=== PATIENT | male | born 1950 | race Two or more races ===

== ENCOUNTER 2021-03-07 11:51 | Inpatient (IN) | payer MEDICARE ==
[~2021-03-07] VITALS: Ht 185.4 cm; Wt 112.0 kg
[2021-03-07] MEDS ORDERED: MORPHINE SULFATE 4 MG/ML SYR/VIAL IV ONE (12:00)
[2021-03-07] MEDS ORDERED: PANTOPRAZOLE 40 MG/10 ML VIAL INJ IV ONE (12:00)
[2021-03-07] MEDS ORDERED: SODIUM CHLORIDE 0.9% 500 ML IVB ONE (12:00)
[2021-03-07] MEDS ORDERED: ONDANSETRON HCL 4 MG/2 ML VIAL IV ONE (12:00)
[2021-03-07 12:30] LABS: Basophils # (auto) 0 10 ^3/uL (0-0.2); Basophils % (auto) 0.3 % (0.0-2.0); Eosinophils # (auto) 0.1 10 ^3/uL (0-0.8); Eosinophils % (auto) 1.4 % (0.0-7.0); Hematocrit 42.4 % (41.0-53.0); Hemoglobin 14.3 g/dL (13.5-17.5); Lymphocytes # (auto) 2.7 10 ^3/uL (0.4-5.4); Lymphocytes % (auto) 29.1 % (10.0-50.0); Mean Corpuscular Hemoglobin 28.7 pg (28.0-32.0); Mean Corpuscular Hgb Conc. 33.8 g/dL (32.0-36.0); Monocytes # (auto) 0.7 10 ^3/uL (0-1.3); Monocytes % (auto) 8.1 % (0.0-12.0); Neutrophils # (auto) 5.6 10 ^3/uL (1.6-8.6); Neutrophils % (auto) 61.1 % (37.0-80.0); Red Blood Cells 4.99 10^6/uL (4.5-5.90); Red Cell Distribution Width 14.2 % (11.8-14.3); White Blood Cell 9.2 10^3/uL (4.4-10.8)
[2021-03-07 12:38] LABS: Chloride 109 mmol/L (98-107); Potassium 3.1 mmol/L (3.5-5.1); Sodium 146 mmol/L (136-145)
[2021-03-07 12:47] LABS: Alanine Aminotransferase 22 U/L (16-61); Albumin 3.2 g/dL (3.4-5.0); Alkaline Phosphatase 74 U/L (45-117); Anion Gap 8 (5-15); Aspartate Aminotransferase 13 U/L (15-37); BUN/Creatinine Ratio 21.3; Bilirubin, Total 0.7 mg/dL (0.2-1.0); Blood Urea Nitrogen 19 mg/dL (7-18); Calcium 8.5 mg/dL (8.5-10.1); Carbon Dioxide 29 mmol/L (21-32); GFR African American 108 mL/min; GFR Non-African American 89 mL/min; Glucose 125 mg/dL (74-106); Lipase 127 U/L (73-393); Magnesium 2.5 mg/dL (1.6-2.6); Total Protein 6.6 g/dL (6.4-8.2)
[2021-03-07] MEDS ORDERED: traMADol HCL 50 MG TAB PO ONE (14:00)
[2021-03-07] MEDS ORDERED: PIPERACILLIN-TAZOB 3.375GM 100 ML IV ONE (14:15)
[2021-03-07] MEDS ORDERED: metroNIDAZOLE 500MG/100ML 100 ML IV ONE (14:30)
[2021-03-07] MEDS ORDERED: MORPHINE SULF INJ 2 MG/ML SYRINGE 1ML IV PRN (15:00)
[2021-03-07] MEDS ORDERED: ENOXAPARIN SOD 40 MG/0.4 ML SYRINGE SC ONE (15:00)
[2021-03-07] MEDS ORDERED: NITROGLYCERIN 0.4 MG SL TAB SL PRN (15:00)
[2021-03-07 17:08] VITALS: BP 119/71
[2021-03-07] MEDS: D5W/ SOD CHL 0.9%/KCL 20MEQ 1,000 ML IV SCH (17:21)
[2021-03-07 18:04] VITALS: BP 119/71
[2021-03-07] MEDS: metroNIDAZOLE 500MG/100ML 100 ML IV SCH (21:05)
[2021-03-07] MEDS: traZODone HCL 50 MG TAB PO SCH (21:05)
[2021-03-07] MEDS: levETIRAcetam 500 MG TAB PO SCH (21:06)
[2021-03-07] MEDS: METOPROLOL TARTRATE 50 MG TAB PO SCH (21:15)
[2021-03-07] MEDS ORDERED: KETOROLAC TROMETH 30 MG/ML 1ML VIAL IV ONE (21:15)
[2021-03-07 21:21] VITALS: BP 116/68
[2021-03-08 05:18] VITALS: BP 114/63
[2021-03-08] MEDS: D5W/ SOD CHL 0.9%/KCL 20MEQ 1,000 ML IV SCH ×3 (05:30→21:00)
[2021-03-08] MEDS: metroNIDAZOLE 500MG/100ML 100 ML IV SCH ×2 (05:31→17:30)
[2021-03-08] MEDS: MORPHINE SULF INJ 2 MG/ML SYRINGE 1ML IV PRN ×2 (05:41→13:13)
[2021-03-08 06:11] LABS: Basophils # (auto) 0 10 ^3/uL (0-0.2); Basophils % (auto) 0.3 % (0.0-2.0); Eosinophils # (auto) 0.1 10 ^3/uL (0-0.8); Eosinophils % (auto) 1.7 % (0.0-7.0); Hemoglobin 12.8 g/dL (13.5-17.5); Lymphocytes # (auto) 2.5 10 ^3/uL (0.4-5.4); Lymphocytes % (auto) 33.3 % (10.0-50.0); Mean Corpuscular Hemoglobin 28.9 pg (28.0-32.0); Mean Corpuscular Hgb Conc. 33.6 g/dL (32.0-36.0); Monocytes # (auto) 0.7 10 ^3/uL (0-1.3); Monocytes % (auto) 9.1 % (0.0-12.0); Neutrophils # (auto) 4.1 10 ^3/uL (1.6-8.6); Neutrophils % (auto) 55.6 % (37.0-80.0); Red Blood Cells 4.42 10^6/uL (4.5-5.90); White Blood Cell 7.5 10^3/uL (4.4-10.8)
[2021-03-08 06:34] LABS: Urine Bacteria NONE SEEN /hpf (None Seen); Urine Blood Negative /uL (Negative); Urine Mucus FEW (None Seen); Urine Specific Gravity 1.025 (1.001-1.035); Urine WBC 4 /hpf (0 - 3)
[2021-03-08 06:54] LABS: Albumin 2.8 g/dL (3.4-5.0); BUN/Creatinine Ratio 22.8; Bilirubin, Total 0.4 mg/dL (0.2-1.0); Calcium 7.7 mg/dL (8.5-10.1); Total Protein 5.7 g/dL (6.4-8.2)
[2021-03-08 07:00] LABS: Potassium 2.9 mmol/L (3.5-5.1)
[2021-03-08] MEDS ORDERED: POTASSIUM CHL 20 Meq TABLET PO ONE (07:15)
[2021-03-08 09:00] VITALS: BP 113/61
[2021-03-08] MEDS: levETIRAcetam 500 MG TAB PO SCH ×2 (09:16→20:57)
[2021-03-08] MEDS: METOPROLOL TARTRATE 50 MG TAB PO SCH ×2 (09:17→20:57)
[2021-03-08] MEDS: cefTRIAXone 1GM/50ML D5W 50 ML IV SCH (09:18)
[2021-03-08] MEDS ORDERED: PANTOPRAZOLE 40 MG TAB PO SCH (10:00)
[2021-03-08] MEDS ORDERED: POTASSIUM CHLORIDE 40 MEQ, LIDOCAINE 1% (LOCAL ANESTH.) 4 ML in SODIUM CHL 0.9% 250 ML IV ONE (12:00)
[2021-03-08 13:00] VITALS: BP 96/51
[2021-03-08] MEDS: HYDROcodone-ACET 5/325MG TAB PO PRN ×2 (16:11→21:09)
[2021-03-08] MEDS ORDERED: CALC500C3 PO (16:16)
[2021-03-08] MEDS ORDERED: DIVA500T13 PO (16:16)
[2021-03-08] MEDS ORDERED: ALUMSUS OR (16:16)
[2021-03-08] MEDS ORDERED: TRAZ100T3 PO (16:16)
[2021-03-08] MEDS ORDERED: DOCU-94 PO (16:16)
[2021-03-08] MEDS ORDERED: POTA-220 PO (16:16)
[2021-03-08] MEDS ORDERED: LEVE750T3 PO (16:16)
[2021-03-08] MEDS ORDERED: MELA3TAB27 PO (16:16)
[2021-03-08] MEDS ORDERED: MULT-1018 PO (16:16)
[2021-03-08] MEDS ORDERED: DOCU100C10 PO (16:16)
[2021-03-08] MEDS ORDERED: ACET500C8 PO (16:16)
[2021-03-08] MEDS ORDERED: ATOR10TA52 PO (16:16)
[2021-03-08] MEDS ORDERED: ASCO-22 PO (16:16)
[2021-03-08] MEDS ORDERED: FURO40TA4 PO (16:16)
[2021-03-08] MEDS ORDERED: BISA10SU5 RE (16:16)
[2021-03-08] MEDS ORDERED: ZINC220C8 PO (16:16)
[2021-03-08] MEDS ORDERED: AMINLIQ64 OR (16:16)
[2021-03-08] MEDS ORDERED: FAMO-12 PO (16:16)
[2021-03-08] MEDS ORDERED: DICL-163 PO (16:16)
[2021-03-08] MEDS ORDERED: LEVO25TA6 PO (16:16)
[2021-03-08] MEDS ORDERED: CHOL100055 PO (16:16)
[2021-03-08] MEDS ORDERED: LOPE2TAB78 PO (16:16)
[2021-03-08] MEDS ORDERED: ASPI-543 PO (16:16)
[2021-03-08] MEDS ORDERED: METO25TA93 PO (16:16)
[2021-03-08] MEDS ORDERED: DIPH25CA66 PO (16:16)
[2021-03-08 17:23] VITALS: BP 95/60
[2021-03-08] MEDS: traZODone HCL 50 MG TAB PO SCH (20:57)
[2021-03-08 22:23] VITALS: BP 101/61
[2021-03-09] MEDS: metroNIDAZOLE 500MG/100ML 100 ML IV SCH ×3 (00:35→16:32)
[2021-03-09] MEDS: HYDROcodone-ACET 5/325MG TAB PO PRN ×4 (03:14→22:03)
[2021-03-09 05:03] VITALS: BP 96/59
[2021-03-09] MEDS: MORPHINE SULF INJ 2 MG/ML SYRINGE 1ML IV PRN ×3 (05:21→18:34)
[2021-03-09] MEDS: D5W/ SOD CHL 0.9%/KCL 20MEQ 1,000 ML IV SCH ×2 (06:26→10:31)
[2021-03-09 08:30] LABS: BUN/Creatinine Ratio 19.4; Calcium 8.1 mg/dL (8.5-10.1); Potassium 3.4 mmol/L (3.5-5.1)
[2021-03-09] MEDS: levETIRAcetam 500 MG TAB PO SCH ×2 (08:39→21:35)
[2021-03-09] MEDS: cefTRIAXone 1GM/50ML D5W 50 ML IV SCH (08:39)
[2021-03-09] MEDS: METOPROLOL TARTRATE 50 MG TAB PO SCH ×2 (08:48→21:39)
[2021-03-09 09:00] VITALS: BP 110/65
[2021-03-09] MEDS ORDERED: POTASSIUM CHL 20 Meq TABLET PO ONE (09:00)
[2021-03-09 13:00] VITALS: BP 111/74
[2021-03-09 17:00] VITALS: BP 91/52
[2021-03-09 18:30] VITALS: BP 104/62
[2021-03-09] MEDS: traZODone HCL 50 MG TAB PO SCH (21:35)
[2021-03-09 22:00] VITALS: BP 89/44
[2021-03-10] MEDS: D5W/ SOD CHL 0.9%/KCL 20MEQ 1,000 ML IV SCH (00:45)
[2021-03-10] MEDS: metroNIDAZOLE 500MG/100ML 100 ML IV SCH (00:45)
[2021-03-10] MEDS: MORPHINE SULF INJ 2 MG/ML SYRINGE 1ML IV PRN ×4 (00:46→21:56)
[2021-03-10] MEDS: ONDANSETRON HCL 4 MG/2 ML VIAL IV PRN (03:03)
[2021-03-10 05:00] VITALS: BP 101/58
[2021-03-10 09:04] VITALS: BP 111/76
[2021-03-10] MEDS: levETIRAcetam 500 MG TAB PO SCH ×2 (09:53→21:50)
[2021-03-10] MEDS: METOPROLOL TARTRATE 50 MG TAB PO SCH ×2 (09:53→21:50)
[2021-03-10] MEDS ORDERED: SODIUM CHLORIDE 0.9% 500 ML IV ONE (10:00)
[2021-03-10 10:43] LABS: Basophils # (auto) 0 10 ^3/uL (0-0.2); Basophils % (auto) 0.4 % (0.0-2.0); Eosinophils # (auto) 0.2 10 ^3/uL (0-0.8); Eosinophils % (auto) 2.4 % (0.0-7.0); Hematocrit 38.4 % (41.0-53.0); Lymphocytes # (auto) 1.6 10 ^3/uL (0.4-5.4); Lymphocytes % (auto) 22.5 % (10.0-50.0); Mean Corpuscular Hemoglobin 28.8 pg (28.0-32.0); Mean Corpuscular Hgb Conc. 33.9 g/dL (32.0-36.0); Mean Corpuscular Volume 85.1 fL (80.0-100.0); Monocytes # (auto) 0.5 10 ^3/uL (0-1.3); Neutrophils # (auto) 4.9 10 ^3/uL (1.6-8.6); Neutrophils % (auto) 67.7 % (37.0-80.0); Red Blood Cells 4.51 10^6/uL (4.5-5.90); White Blood Cell 7.3 10^3/uL (4.4-10.8)
[2021-03-10] MEDS: levoFLOXacin 500 MG TAB PO SCH (11:14)
[2021-03-10 11:38] LABS: Calcium 7.8 mg/dL (8.5-10.1); Potassium 3.8 mmol/L (3.5-5.1)
[2021-03-10 11:41] LABS: BUN/Creatinine Ratio 11.9
[2021-03-10] MEDS: HYDROcodone-ACET 5/325MG TAB PO PRN (12:36)
[2021-03-10 12:38] VITALS: BP 96/60
[2021-03-10 12:40] VITALS: BP 125/79
[2021-03-10] MEDS ORDERED: FLEET ENEMA(ADULT) 135 ML PR ONE ×2 (13:00→14:00)
[2021-03-10 14:01] LABS: INR 1.08 (0.9-1.15); Partial Thromboplastin Time 29.3 sec (23.0-31.2)
[2021-03-10] MEDS: metroNIDAZOLE 500 MG TAB PO SCH ×2 (14:47→21:50)
[2021-03-10] MEDS ORDERED: fentaNYL CITRATE 100 MCG/2 ML VL ONE (16:01)
[2021-03-10] MEDS ORDERED: MIDAZOLAM HCL 5 MG/ML-1ML VIAL ONE (16:01)
[2021-03-10] MEDS ORDERED: diphenhdrAMINE HCL 50 MG/1 ML VL ONE (16:01)
[2021-03-10 17:33] VITALS: BP 118/72
[2021-03-10] MEDS: traZODone HCL 50 MG TAB PO SCH (21:50)
[2021-03-10] MEDS: DOCUSATE SOD 100 MG CAP PO SCH (21:50)
[2021-03-10 22:00] VITALS: BP 120/78
[2021-03-11 05:00] VITALS: BP 95/59
[2021-03-11] MEDS: metroNIDAZOLE 500 MG TAB PO SCH ×3 (06:18→21:50)
[2021-03-11] MEDS: MORPHINE SULF INJ 2 MG/ML SYRINGE 1ML IV PRN ×3 (08:10→20:56)
[2021-03-11 09:00] VITALS: BP 110/60
[2021-03-11] MEDS: levETIRAcetam 500 MG TAB PO SCH ×2 (09:33→21:48)
[2021-03-11] MEDS: levoFLOXacin 500 MG TAB PO SCH (09:33)
[2021-03-11] MEDS: DOCUSATE SOD 100 MG CAP PO SCH ×2 (09:33→21:47)
[2021-03-11] MEDS: METOPROLOL TARTRATE 50 MG TAB PO SCH ×2 (09:34→21:53)
[2021-03-11] MEDS: HYDROcodone-ACET 5/325MG TAB PO PRN ×3 (11:01→20:12)
[2021-03-11 12:50] VITALS: BP 105/74
[2021-03-11 17:00] VITALS: BP 100/65
[2021-03-11] MEDS: traZODone HCL 50 MG TAB PO SCH (21:49)
[2021-03-11 21:54] VITALS: BP 104/57
[2021-03-12] MEDS: HYDROcodone-ACET 5/325MG TAB PO PRN ×4 (00:15→18:09)
[2021-03-12 04:26] VITALS: BP 91/57
[2021-03-12] MEDS: metroNIDAZOLE 500 MG TAB PO SCH ×3 (05:24→21:13)
[2021-03-12 06:08] LABS: Basophils # (auto) 0 10 ^3/uL (0-0.2); Basophils % (auto) 0.5 % (0.0-2.0); Eosinophils # (auto) 0.3 10 ^3/uL (0-0.8); Eosinophils % (auto) 3.3 % (0.0-7.0); Hematocrit 37.8 % (41.0-53.0); Hemoglobin 12.8 g/dL (13.5-17.5); Lymphocytes # (auto) 2.7 10 ^3/uL (0.4-5.4); Lymphocytes % (auto) 34.8 % (10.0-50.0); Mean Corpuscular Hgb Conc. 33.9 g/dL (32.0-36.0); Mean Corpuscular Volume 85.7 fL (80.0-100.0); Monocytes # (auto) 0.8 10 ^3/uL (0-1.3); Monocytes % (auto) 10.4 % (0.0-12.0); Red Blood Cells 4.41 10^6/uL (4.5-5.90); Red Cell Distribution Width 14.3 % (11.8-14.3); White Blood Cell 7.8 10^3/uL (4.4-10.8)
[2021-03-12 06:24] LABS: Potassium 3.7 mmol/L (3.5-5.1)
[2021-03-12 06:29] LABS: BUN/Creatinine Ratio 16.2; Calcium 7.9 mg/dL (8.5-10.1)
[2021-03-12] MEDS: MORPHINE SULF INJ 2 MG/ML SYRINGE 1ML IV PRN ×2 (08:00→20:29)
[2021-03-12 08:30] VITALS: BP 98/63
[2021-03-12] MEDS: levETIRAcetam 500 MG TAB PO SCH ×2 (10:00→21:14)
[2021-03-12] MEDS: METOPROLOL TARTRATE 50 MG TAB PO SCH ×2 (10:00→21:15)
[2021-03-12] MEDS: DOCUSATE SOD 100 MG CAP PO SCH ×2 (10:00→21:12)
[2021-03-12] MEDS: levoFLOXacin 500 MG TAB PO SCH (10:00)
[2021-03-12] MEDS: MESALAMINE 400mg Delayed Release Cap PO SCH ×2 (11:00→21:12)
[2021-03-12 12:42] VITALS: BP 91/52
[2021-03-12 16:49] VITALS: BP 110/67
[2021-03-12 20:00] VITALS: BP 112/74
[2021-03-12] MEDS: traZODone HCL 50 MG TAB PO SCH (21:14)
[2021-03-13] MEDS: HYDROcodone-ACET 5/325MG TAB PO PRN ×5 (00:19→19:52)
[2021-03-13 05:00] VITALS: BP 90/50
[2021-03-13] MEDS: metroNIDAZOLE 500 MG TAB PO SCH ×2 (05:13→14:42)
[2021-03-13 08:55] VITALS: BP_SYST 54; BP_SYST 97; BP_DIAS 50; BP_DIAS 67
[2021-03-13] MEDS: DOCUSATE SOD 100 MG CAP PO SCH (10:02)
[2021-03-13] MEDS: MESALAMINE 400mg Delayed Release Cap PO SCH (10:02)
[2021-03-13] MEDS: levETIRAcetam 500 MG TAB PO SCH (10:02)
[2021-03-13] MEDS: METOPROLOL TARTRATE 50 MG TAB PO SCH (10:03)
[2021-03-13] MEDS: levoFLOXacin 500 MG TAB PO SCH (10:08)
[2021-03-13] MEDS ORDERED: ONDA-144 PO (10:39)
[2021-03-13] MEDS ORDERED: MESA400C PO (10:39)
[2021-03-13] MEDS ORDERED: LEVO-28 PO (10:39)
[2021-03-13] MEDS ORDERED: MET500T PO (10:39)
[2021-03-13 12:38] VITALS: BP 87/50
[2021-03-13] MEDS: ONDANSETRON HCL 4 MG/2 ML VIAL IV PRN (13:20)
[2021-03-13 16:57] VITALS: BP 104/66
== END 2021-03-13 20:36 | disposition home health service (06) | DRG 386 ==
LOC: ER 11:51 → EDBD 11:51 → TELE 14:56 → TELE-CENTR 16:42
PROVIDERS: ADMIT Nurse Practitioner Acute Care; ATTEND Internal Medicine
PROC: 0DBN8ZZ Excision of Sigmoid Colon, Via Natural or Artificial Opening Endoscopic (ICD-10-PCS; 2021-03-10)
PROC: 0DBN8ZX Excision of Sigmoid Colon, Via Natural or Artificial Opening Endoscopic, Diagnostic (ICD-10-PCS; principal; 2021-03-10 16:28)
DX: K51.311 Ulcerative (chronic) rectosigmoiditis with rectal bleeding (principal); E44.0 Moderate protein-calorie malnutrition; K52.9 Noninfective gastroenteritis and colitis, unspecified; R73.9 Hyperglycemia, unspecified; Q04.9 Congenital malformation of brain, unspecified; G40.909 Epilepsy, unspecified, not intractable, without status epilepticus; I48.91 Unspecified atrial fibrillation; E66.9 Obesity, unspecified; E87.6 Hypokalemia; Z68.30 Body mass index [BMI] 30.0-30.9, adult; Z88.8 Allergy status to other drugs, medicaments and biological substances; Z20.822 Contact with and (suspected) exposure to COVID-19; K80.20 Calculus of gallbladder without cholecystitis without obstruction; K64.8 Other hemorrhoids; E03.9 Hypothyroidism, unspecified; F32.9 Major depressive disorder, single episode, unspecified; E78.5 Hyperlipidemia, unspecified; I10 Essential (primary) hypertension; J44.9 Chronic obstructive pulmonary disease, unspecified; K63.5 Polyp of colon; Z80.9 Family history of malignant neoplasm, unspecified
CPT/HCPCS: 36415; 71045; 74176; 80048; 80053; 81001; 82270; 82378; 83690; 83735; 84484; 85025; 85048; 85610; 85730; 86850; 86900; 86901; 87045; 87081; 87426; 87427; 87493; 93005; 96361; 96365; 96367; 96372; 96375; C9113; G0378; J0696; J1885; J2001; J2250; J2405; J2543; J3490

== ENCOUNTER → 2021-09-22 | Day surgery (SDC) | payer MEDICARE ==
[2021-09-20 11:21] LABS: Basophils # (auto) 0 10 ^3/uL (0-0.2); Basophils % (auto) 0.5 % (0.0-2.0); Eosinophils # (auto) 0.1 10 ^3/uL (0-0.8); Eosinophils % (auto) 1.3 % (0.0-7.0); Hemoglobin 14.7 g/dL (13.5-17.5); Lymphocytes # (auto) 2.5 10 ^3/uL (0.4-5.4); Mean Corpuscular Hemoglobin 29.5 pg (28.0-32.0); Mean Corpuscular Hgb Conc. 34.2 g/dL (32.0-36.0); Mean Corpuscular Volume 86.4 fL (80.0-100.0); Monocytes # (auto) 0.6 10 ^3/uL (0-1.3); Monocytes % (auto) 7.5 % (0.0-12.0); Neutrophils # (auto) 4.2 10 ^3/uL (1.6-8.6); Neutrophils % (auto) 56.7 % (37.0-80.0); Nucleated Red Blood Cells % 0.1 %; Red Blood Cells 4.98 10^6/uL (4.5-5.90); Red Cell Distribution Width 13.1 % (11.8-14.3); White Blood Cell 7.4 10^3/uL (4.4-10.8)
[2021-09-20 11:39] LABS: INR 1.07 (0.9-1.15); Partial Thromboplastin Time 29.1 sec (23.6-33.0)
[2021-09-20 12:42] LABS: Albumin 3.8 g/dL (3.4-5.0); BUN/Creatinine Ratio 25.3; Bilirubin, Total 0.9 mg/dL (0.2-1.0); Calcium 8.9 mg/dL (8.5-10.1); Total Protein 7.1 g/dL (6.4-8.2)
[~2021-09-22] VITALS: Ht 185.4 cm; Wt 98.4 kg
[~2021-09-22] MED LIST: ACET500C8 PO; ALUMSUS OR; ASCO-22 PO; ASPI-543 PO; BENZ1TAB2 PO; BISA10SU60 PR; CYAN1TAB14 PO; DICL50TA2 PO; DIPH25CA66 PO; DIVA500T13 PO; DOCU-94 PO; FAMO-12 PO; GINK40TA2 PO; IBUP800T26 PO; LEVE750T3 PO; LEVO-28 PO; LEVO25TA6 PO; LORA1TAB23 PO; MESA400C PO; MET500T PO; METO25TA93 PO; MIDAZOLAM HCL 5 MG/ML-1ML VIAL ONE; MULT-1018 PO; OMEG10003 PO; ONDA-144 PO; ROPI1TAB4 PO; SIMV-8 PO; TRAM50TA2 PO; TRAZ100T3 PO; VALE450C PO; ZINC220C8 PO; diphenhdrAMINE HCL 50 MG/1 ML VL ONE; fentaNYL CITRATE 100 MCG/2 ML VL ONE
[2021-09-22 13:45] VITALS: BP 113/68
== END | disposition home or self-care (01) ==
LOC: GI 12:13
PROVIDERS: ATTEND Internal Medicine Gastroenterology
DX: K56.41 Fecal impaction (principal); K63.89 Other specified diseases of intestine; I12.9 Hypertensive chronic kidney disease with stage 1 through stage 4 chronic kidney disease, or unspecified chronic kidney disease; N18.2 Chronic kidney disease, stage 2 (mild); E78.5 Hyperlipidemia, unspecified; F41.9 Anxiety disorder, unspecified; E03.9 Hypothyroidism, unspecified; Z98.890 Other specified postprocedural states; Z86.010 Personal history of colon polyps; Z79.899 Other long term (current) drug therapy; Z20.822 Contact with and (suspected) exposure to COVID-19
CPT/HCPCS: 36415; 45330; 80053; 85025; 85610; 85730; J1200; J2250; J3010; J7030; U0003

== ENCOUNTER 2022-05-05 10:40 | Inpatient (IN) | payer MEDICARE ==
[~2022-05-05] VITALS: Ht 185.4 cm; Wt 106.3 kg
[~2022-05-05 10:40] MED LIST changes: -MIDAZOLAM HCL 5 MG/ML-1ML VIAL ONE; -diphenhdrAMINE HCL 50 MG/1 ML VL ONE; -fentaNYL CITRATE 100 MCG/2 ML VL ONE
[2022-05-05] MEDS ORDERED: HYDROmorphone HCL 2 MG/ML VL/or syr IV ONE (12:15)
[2022-05-05] MEDS ORDERED: SODIUM CHLORIDE 0.9% 500 ML IVB ONE (12:15)
[2022-05-05] MEDS ORDERED: SODIUM CHLORIDE 0.9% 1,000 ML IV ONE (12:15)
[2022-05-05] MEDS: PROMETHAZINE HCL 25 MG/ML 1ML IV PRN (12:30)
[2022-05-05 13:14] LABS: Urine WBC None Seen /hpf (0 - 3)
[2022-05-05 13:16] LABS: INR 1.07 (0.9-1.15); Partial Thromboplastin Time 25.7 sec (24.6-33.4)
[2022-05-05 13:26] LABS: Potassium 4.7 mmol/L (3.5-5.1)
[2022-05-05 13:29] LABS: Urine Bacteria NONE SEEN /hpf (None Seen); Urine Blood Negative /uL (Negative); Urine Specific Gravity 1.009 (1.001-1.035)
[2022-05-05 13:35] LABS: Albumin 3.6 g/dL (3.4-5.0); BUN/Creatinine Ratio 24.1; Bilirubin, Total 1.4 mg/dL (0.2-1.0); Calcium 8.9 mg/dL (8.5-10.1); Magnesium 2.6 mg/dL (1.6-2.6); Total Protein 7.1 g/dL (6.4-8.2)
[2022-05-05 14:10] LABS: Basophils # (auto) 0 10 ^3/uL (0-0.2); Basophils % (auto) 0.1 % (0.0-2.0); Eosinophils # (auto) 0 10 ^3/uL (0-0.8); Eosinophils % (auto) 0.2 % (0.0-7.0); Hematocrit 50.1 % (41.0-53.0); Hemoglobin 16.5 g/dL (13.5-17.5); Lymphocytes # (auto) 3.4 10 ^3/uL (0.4-5.4); Lymphocytes % (auto) 22.3 % (10.0-50.0); Mean Corpuscular Hgb Conc. 32.9 g/dL (32.0-36.0); Mean Corpuscular Volume 88.2 fL (80.0-100.0); Monocytes # (auto) 1.9 10 ^3/uL (0-1.3); Monocytes % (auto) 12.5 % (0.0-12.0); Neutrophils # (auto) 9.8 10 ^3/uL (1.6-8.6); Neutrophils % (auto) 64.9 % (37.0-80.0); Nucleated Red Blood Cells % 0.2 %; Red Blood Cells 5.68 10^6/uL (4.5-5.90); White Blood Cell 15.2 10^3/uL (4.4-10.8)
[2022-05-05] MEDS ORDERED: ACETAMINOPHEN 325 MG TAB PO PRN (19:15)
[2022-05-05] MEDS ORDERED: SODIUM CHLORIDE 0.9% 1,000 ML IV SCH (19:15)
[2022-05-06 07:04] LABS: Basophils # (auto) 0 10 ^3/uL (0-0.2); Basophils % (auto) 0.3 % (0.0-2.0); Eosinophils # (auto) 0.1 10 ^3/uL (0-0.8); Eosinophils % (auto) 0.7 % (0.0-7.0); Hematocrit 43.6 % (41.0-53.0); Hemoglobin 14.7 g/dL (13.5-17.5); Lymphocytes # (auto) 2.3 10 ^3/uL (0.4-5.4); Lymphocytes % (auto) 23.5 % (10.0-50.0); Mean Corpuscular Hemoglobin 28.8 pg (28.0-32.0); Mean Corpuscular Hgb Conc. 33.8 g/dL (32.0-36.0); Mean Corpuscular Volume 85.3 fL (80.0-100.0); Monocytes # (auto) 1.2 10 ^3/uL (0-1.3); Monocytes % (auto) 12.7 % (0.0-12.0); Neutrophils # (auto) 6.1 10 ^3/uL (1.6-8.6); Neutrophils % (auto) 62.8 % (37.0-80.0); Red Blood Cells 5.11 10^6/uL (4.5-5.90); Red Cell Distribution Width 13.5 % (11.8-14.3); White Blood Cell 9.8 10^3/uL (4.4-10.8)
[2022-05-06] MEDS: PROMETHAZINE HCL 25 MG/ML 1ML IV PRN ×2 (07:16→17:15)
[2022-05-06] MEDS: MORPHINE SULFATE INJ 2 MG/ml SYRG IV PRN ×3 (07:18→22:02)
[2022-05-06 07:19] LABS: Albumin 3.2 g/dL (3.4-5.0); Calcium 7.9 mg/dL (8.5-10.1); Potassium 3.6 mmol/L (3.5-5.1)
[2022-05-06 07:23] LABS: BUN/Creatinine Ratio 32.3; Bilirubin, Total 1.2 mg/dL (0.2-1.0); Total Protein 6.1 g/dL (6.4-8.2)
[2022-05-06] MEDS: levETIRAcetam 500 MG TAB PO SCH (11:10)
[2022-05-06] MEDS: ENOXAPARIN SOD 40 MG/0.4 ML SYRINGE SC SCH (11:12)
[2022-05-06] MEDS: METOPROLOL SUCCINATE XL 50 MG TAB PO SCH (11:12)
[2022-05-06] MEDS ORDERED: HALOPERIDOL LACTATE 5 MG/ML INJ VIAL IM PRN (15:45)
[2022-05-06 22:00] VITALS: BP 140/87
[2022-05-06] MEDS: traZODone HCL 50 MG TAB PO SCH (22:02)
[2022-05-06 23:05] VITALS: BP 140/87
[2022-05-07] MEDS: MORPHINE SULFATE INJ 2 MG/ml SYRG IV PRN ×4 (02:15→19:29)
[2022-05-07 05:00] VITALS: BP 104/64
[2022-05-07 06:08] LABS: Calcium 7.8 mg/dL (8.5-10.1); Magnesium 2.5 mg/dL (1.6-2.6); Potassium 3.4 mmol/L (3.5-5.1)
[2022-05-07 06:12] LABS: BUN/Creatinine Ratio 33.3; Bilirubin, Total 1.1 mg/dL (0.2-1.0)
[2022-05-07 06:13] LABS: Basophils # (auto) 0 10 ^3/uL (0-0.2); Basophils % (auto) 0.4 % (0.0-2.0); Eosinophils # (auto) 0.2 10 ^3/uL (0-0.8); Eosinophils % (auto) 1.7 % (0.0-7.0); Hematocrit 42.4 % (41.0-53.0); Hemoglobin 14.1 g/dL (13.5-17.5); Lymphocytes % (auto) 30.4 % (10.0-50.0); Mean Corpuscular Hemoglobin 28.8 pg (28.0-32.0); Mean Corpuscular Hgb Conc. 33.2 g/dL (32.0-36.0); Mean Corpuscular Volume 86.6 fL (80.0-100.0); Monocytes # (auto) 1.1 10 ^3/uL (0-1.3); Neutrophils # (auto) 5.5 10 ^3/uL (1.6-8.6); Neutrophils % (auto) 56.5 % (37.0-80.0); Nucleated Red Blood Cells % 0.2 %; Red Cell Distribution Width 13.7 % (11.8-14.3); White Blood Cell 9.8 10^3/uL (4.4-10.8)
[2022-05-07 08:00] VITALS: BP 133/87
[2022-05-07] MEDS ORDERED: POTASSIUM CHLORIDE 20 MEQ, LIDOCAINE 1% (LOCAL ANESTH.) 2 ML in SODIUM CHL 0.9% 100 ML IV ONE (08:45)
[2022-05-07 09:00] VITALS: BP 133/87
[2022-05-07] MEDS: ENOXAPARIN SOD 40 MG/0.4 ML SYRINGE SC SCH (10:00)
[2022-05-07] MEDS: levETIRAcetam 500 MG TAB PO SCH (12:03)
[2022-05-07] MEDS: METOPROLOL SUCCINATE XL 50 MG TAB PO SCH (12:04)
[2022-05-07 13:00] VITALS: BP 127/77
[2022-05-07] MEDS ORDERED: FLEET ENEMA(ADULT) 135 ML PR ONE (13:30)
[2022-05-07 17:00] VITALS: BP 100/62
[2022-05-07] MEDS: traZODone HCL 50 MG TAB PO SCH (21:30)
[2022-05-07 22:00] VITALS: BP 111/62
[2022-05-07] MEDS: MUPIROCIN 2% OINT 15gm or 22gm FOR MRSA NARES EACHNOSTRI SCH ×2 (22:00→23:47)
[2022-05-08 05:00] VITALS: BP 107/60
[2022-05-08] MEDS: MORPHINE SULFATE INJ 2 MG/ml SYRG IV PRN (06:24)
[2022-05-08 07:08] LABS: Albumin 2.9 g/dL (3.4-5.0); Calcium 7.9 mg/dL (8.5-10.1); Magnesium 2.5 mg/dL (1.6-2.6); Potassium 3.5 mmol/L (3.5-5.1)
[2022-05-08 07:11] LABS: Bilirubin, Total 0.8 mg/dL (0.2-1.0)
[2022-05-08 07:20] LABS: BUN/Creatinine Ratio 27.6
[2022-05-08 08:00] VITALS: BP 111/51
[2022-05-08] MEDS: MUPIROCIN 2% OINT 15gm or 22gm FOR MRSA NARES EACHNOSTRI SCH ×2 (09:07→21:14)
[2022-05-08] MEDS: levETIRAcetam 500 MG TAB PO SCH (09:07)
[2022-05-08] MEDS: ENOXAPARIN SOD 40 MG/0.4 ML SYRINGE SC SCH (09:08)
[2022-05-08] MEDS: METOPROLOL SUCCINATE XL 50 MG TAB PO SCH (09:08)
[2022-05-08] MEDS: HYDROcodone-ACET 5/325MG TAB PO PRN ×3 (09:09→21:15)
[2022-05-08 12:00] VITALS: BP 111/61
[2022-05-08 16:00] VITALS: BP 130/85
[2022-05-08] MEDS: traZODone HCL 50 MG TAB PO SCH (21:15)
[2022-05-08 22:00] VITALS: BP 107/42
[2022-05-09 05:00] VITALS: BP 98/55
[2022-05-09 08:47] VITALS: BP 126/76
[2022-05-09 09:00] VITALS: BP 119/72
[2022-05-09] MEDS: MUPIROCIN 2% OINT 15gm or 22gm FOR MRSA NARES EACHNOSTRI SCH (09:06)
[2022-05-09] MEDS: levETIRAcetam 500 MG TAB PO SCH (09:07)
[2022-05-09] MEDS: ENOXAPARIN SOD 40 MG/0.4 ML SYRINGE SC SCH (09:09)
[2022-05-09] MEDS: METOPROLOL SUCCINATE XL 50 MG TAB PO SCH (09:09)
[2022-05-09] MEDS: HYDROcodone-ACET 5/325MG TAB PO PRN (09:09)
== END 2022-05-09 10:10 | DRG 445 ==
LOC: ER 10:40 → EDBD 10:40 → OVERFLOW 19:03 → WEST WING 05-06 21:23
PROVIDERS: ADMIT Internal Medicine; ATTEND Internal Medicine
DX: K80.20 Calculus of gallbladder without cholecystitis without obstruction (principal); E44.0 Moderate protein-calorie malnutrition; K56.49 Other impaction of intestine; E87.0 Hyperosmolality and hypernatremia; E03.9 Hypothyroidism, unspecified; N18.31 Chronic kidney disease, stage 3a; Z20.822 Contact with and (suspected) exposure to COVID-19; K40.90 Unilateral inguinal hernia, without obstruction or gangrene, not specified as recurrent; G40.909 Epilepsy, unspecified, not intractable, without status epilepticus; E78.5 Hyperlipidemia, unspecified; J44.9 Chronic obstructive pulmonary disease, unspecified; I12.9 Hypertensive chronic kidney disease with stage 1 through stage 4 chronic kidney disease, or unspecified chronic kidney disease; E87.6 Hypokalemia; E87.8 Other disorders of electrolyte and fluid balance, not elsewhere classified; Z80.9 Family history of malignant neoplasm, unspecified; Z79.899 Other long term (current) drug therapy; Z68.30 Body mass index [BMI] 30.0-30.9, adult; Z88.8 Allergy status to other drugs, medicaments and biological substances; K59.00 Constipation, unspecified
CPT/HCPCS: 36415; 71045; 74176; 78226; 80053; 81001; 82378; 83690; 83735; 84443; 84484; 85025; 85610; 85730; 87040; 87081; 93005; 96361; 96372; 96374; G0378; J2001; J7060

== ENCOUNTER 2022-08-02 10:12 | Inpatient (IN) | payer OTHER, MEDICARE ==
[~2022-08-02] VITALS: Ht 185.4 cm; Wt 114.3 kg
[2022-08-02 10:58] LABS: Basophils # (auto) 0.1 10 ^3/uL (0-0.2); Basophils % (auto) 0.4 % (0.0-2.0); Eosinophils # (auto) 0.1 10 ^3/uL (0-0.8); Eosinophils % (auto) 0.9 % (0.0-7.0); Hematocrit 34.7 % (41.0-53.0); Hemoglobin 11.2 g/dL (13.5-17.5); Lymphocytes # (auto) 1.7 10 ^3/uL (0.4-5.4); Lymphocytes % (auto) 14.6 % (10.0-50.0); Mean Corpuscular Hemoglobin 28.3 pg (28.0-32.0); Mean Corpuscular Hgb Conc. 32.4 g/dL (32.0-36.0); Mean Corpuscular Volume 87.3 fL (80.0-100.0); Monocytes # (auto) 1.6 10 ^3/uL (0-1.3); Monocytes % (auto) 13.6 % (0.0-12.0); Neutrophils # (auto) 8.1 10 ^3/uL (1.6-8.6); Neutrophils % (auto) 70.5 % (37.0-80.0); Red Blood Cells 3.97 10^6/uL (4.5-5.90); Red Cell Distribution Width 13.8 % (11.8-14.3); White Blood Cell 11.4 10^3/uL (4.4-10.8)
[2022-08-02 11:11] LABS: Albumin 2.9 g/dL (3.4-5.0); Calcium 8.2 mg/dL (8.5-10.1)
[2022-08-02 11:16] LABS: BUN/Creatinine Ratio 23.1; Bilirubin, Total 0.8 mg/dL (0.2-1.0)
[2022-08-02] MEDS ORDERED: ONDANSETRON HCL 4 MG/2 ML VIAL IV ONE (15:00)
[2022-08-02] MEDS ORDERED: metroNIDAZOLE 500MG/100ML 100 ML IV ONE (15:00)
[2022-08-02] MEDS ORDERED: MORPHINE SULFATE INJ 2 MG/ml SYRG IV ONE (15:00)
[2022-08-02] MEDS ORDERED: PANTOPRAZOLE 40 MG/10 ML VIAL INJ IV ONE (15:45)
[2022-08-02] MEDS: SODIUM CHLORIDE 0.9% 1,000 ML IV SCH (16:13)
[2022-08-02 16:38] LABS: Cholesterol 158 mg/dL (< 200)
[2022-08-02 16:41] LABS: HDL Cholesterol 25 mg/dL (40-59); LDL Cholesterol 103 mg/dL (< 100); Triglycerides 166 mg/dL (< 150)
[2022-08-02 16:41] LABS: Lactic Acid w/Reflex 2.1 mmol/L (0.4-2.0)
[2022-08-02 16:46] LABS: % Iron Saturation 8.6 % (20-55)
[2022-08-02] MEDS: DICYCLOMINE HCL (10MG/ML) 2 ML AMPULE IM SCH (17:35)
[2022-08-02] MEDS: ACETAMINOPHEN 325 MG TAB PO PRN (20:14)
[2022-08-02] MEDS: LORazepam 2MG/ML-1ML VIAL IV PRN (20:29)
[2022-08-02] MEDS ORDERED: dilTIAZem 25 MG/5 ML VIAL IV ONE (21:30)
[2022-08-02 22:50] LABS: INR 1.13 (0.9-1.15)
[2022-08-02] MEDS: metroNIDAZOLE 500MG/100ML 100 ML IV SCH (22:55)
[2022-08-02] MEDS: HYDROcodone-ACET 5/325MG TAB PO PRN (22:56)
[2022-08-03] VITALS (8 sets, daily range): BP systolic 102–158; BP diastolic 50–79
[2022-08-03] MEDS ORDERED: SODIUM CHLORIDE 0.9% 2,000 ML IV ONE (00:06)
[2022-08-03] MEDS: ACETAMINOPHEN 325 MG TAB PO PRN (05:27)
[2022-08-03] MEDS ORDERED: ASCO500T11 PO (05:43)
[2022-08-03] MEDS ORDERED: ATOR10TA PO (05:48)
[2022-08-03] MEDS ORDERED: CHOL20007 PO (05:48)
[2022-08-03] MEDS ORDERED: MELA3TAB27 PO (05:48)
[2022-08-03] MEDS ORDERED: FURO40TA4 PO (05:48)
[2022-08-03] MEDS: DICYCLOMINE HCL (10MG/ML) 2 ML AMPULE IM SCH ×2 (06:00)
[2022-08-03] MEDS: metroNIDAZOLE 500MG/100ML 100 ML IV SCH ×3 (06:14→22:52)
[2022-08-03] MEDS: SODIUM CHLORIDE 0.9% 1,000 ML IV SCH ×2 (06:14→20:21)
[2022-08-03] MEDS: cefTRIAXone 1GM/50ML D5W 50 ML IV SCH (09:25)
[2022-08-03] MEDS: PANTOPRAZOLE 40 MG/10 ML VIAL INJ IV SCH (09:25)
[2022-08-03] MEDS: HYDROcodone-ACET 5/325MG TAB PO PRN ×3 (09:26→21:47)
[2022-08-03] MEDS: ENOXAPARIN SOD 40 MG/0.4 ML SYRINGE SC SCH (09:26)
[2022-08-03 10:44] LABS: Hematocrit 34.6 % (41.0-53.0); Mean Corpuscular Hemoglobin 28.1 pg (28.0-32.0); Mean Corpuscular Hgb Conc. 31.8 g/dL (32.0-36.0); Mean Corpuscular Volume 88.5 fL (80.0-100.0); Red Blood Cells 3.91 10^6/uL (4.5-5.90); Red Cell Distribution Width 13.7 % (11.8-14.3); White Blood Cell 15.3 10^3/uL (4.4-10.8)
[2022-08-03 10:50] LABS: Basophils % (manual) 0 (0.0-2.0); Blast Cells 0; Eosinophils % (manual) 0 (0-7); Metamyelocytes % 0; Myelocytes % 0; Promyelocytes % 0; Reactive Lymphocytes 0
[2022-08-03 11:01] LABS: Albumin 2.4 g/dL (3.4-5.0); Calcium 7.8 mg/dL (8.5-10.1)
[2022-08-03 11:05] LABS: BUN/Creatinine Ratio 21.8; Bilirubin, Total 1.1 mg/dL (0.2-1.0); Total Protein 5.9 g/dL (6.4-8.2)
[2022-08-03 13:05] LABS: Band Neutrophils % (manual) 49; Lymphocytes % (manual) 6 (10.0-50.0); Monocytes % (manual) 10 (0-12)
[2022-08-03] MEDS ORDERED: AMIODARONE HCL 200 MG TAB PO ONE (13:45)
[2022-08-03] MEDS: LEVOTHYROXINE SODIUM 25 MCG TAB PO SCH (15:41)
[2022-08-03] MEDS: levETIRAcetam 500 MG TAB PO SCH (15:41)
[2022-08-03] MEDS: DICYCLOMINE HCL 10 MG CAP PO SCH ×2 (17:44→22:52)
[2022-08-03] MEDS: traZODone HCL 50 MG TAB PO SCH (22:52)
[2022-08-03] MEDS: AMIODARONE HCL 200 MG TAB PO SCH (22:52)
[2022-08-03] MEDS: ATORVASTATIN 20 MG TAB PO SCH (22:53)
[2022-08-04 05:00] VITALS: BP 123/72
[2022-08-04] MEDS: DICYCLOMINE HCL 10 MG CAP PO SCH ×4 (05:30→22:15)
[2022-08-04] MEDS: LEVOTHYROXINE SODIUM 25 MCG TAB PO SCH (05:30)
[2022-08-04] MEDS: metroNIDAZOLE 500MG/100ML 100 ML IV SCH ×3 (05:30→22:15)
[2022-08-04] MEDS: SODIUM CHLORIDE 0.9% 1,000 ML IV SCH (06:18)
[2022-08-04] MEDS: HYDROcodone-ACET 5/325MG TAB PO PRN ×2 (09:18→17:25)
[2022-08-04] MEDS: AMIODARONE HCL 200 MG TAB PO SCH ×2 (09:19→22:14)
[2022-08-04] MEDS: levETIRAcetam 500 MG TAB PO SCH (09:19)
[2022-08-04] MEDS: ENOXAPARIN SOD 40 MG/0.4 ML SYRINGE SC SCH (09:20)
[2022-08-04] MEDS: PANTOPRAZOLE 40 MG/10 ML VIAL INJ IV SCH (09:20)
[2022-08-04] MEDS: MESALAMINE 400mg Delayed Release Cap PO SCH ×2 (09:21→17:26)
[2022-08-04] MEDS: cefTRIAXone 1GM/50ML D5W 50 ML IV SCH (09:21)
[2022-08-04 09:23] VITALS: BP 108/75
[2022-08-04] MEDS: METOPROLOL SUCCINATE XL 50 MG TAB PO SCH (12:40)
[2022-08-04 12:50] VITALS: BP 108/76
[2022-08-04 16:13] VITALS: BP 132/92
[2022-08-04 22:00] VITALS: BP 111/69
[2022-08-04] MEDS: ATORVASTATIN 20 MG TAB PO SCH (22:14)
[2022-08-04] MEDS: traZODone HCL 50 MG TAB PO SCH (22:15)
[2022-08-05] MEDS: SODIUM CHLORIDE 0.9% 1,000 ML IV SCH ×2 (00:57→15:15)
[2022-08-05 05:00] VITALS: BP 124/76
[2022-08-05] MEDS: HYDROcodone-ACET 5/325MG TAB PO PRN ×3 (05:51→19:55)
[2022-08-05] MEDS: DICYCLOMINE HCL 10 MG CAP PO SCH ×4 (05:52→22:49)
[2022-08-05] MEDS: LEVOTHYROXINE SODIUM 25 MCG TAB PO SCH (05:52)
[2022-08-05] MEDS: metroNIDAZOLE 500MG/100ML 100 ML IV SCH ×3 (05:53→22:49)
[2022-08-05] MEDS: MESALAMINE 400mg Delayed Release Cap PO SCH ×2 (08:15→18:06)
[2022-08-05] MEDS: cefTRIAXone 1GM/50ML D5W 50 ML IV SCH (08:15)
[2022-08-05] MEDS: PANTOPRAZOLE 40 MG/10 ML VIAL INJ IV SCH (08:15)
[2022-08-05] MEDS: levETIRAcetam 500 MG TAB PO SCH (08:16)
[2022-08-05] MEDS: AMIODARONE HCL 200 MG TAB PO SCH ×2 (08:16→22:48)
[2022-08-05] MEDS: METOPROLOL SUCCINATE XL 50 MG TAB PO SCH (08:17)
[2022-08-05] MEDS: ENOXAPARIN SOD 40 MG/0.4 ML SYRINGE SC SCH (08:17)
[2022-08-05 09:02] VITALS: BP 111/69
[2022-08-05] MEDS: LORazepam 2MG/ML-1ML VIAL IV PRN (11:34)
[2022-08-05 13:00] VITALS: BP 100/58
[2022-08-05 16:56] VITALS: BP 90/53
[2022-08-05 22:00] VITALS: BP 105/64
[2022-08-05] MEDS: ATORVASTATIN 20 MG TAB PO SCH (22:48)
[2022-08-05] MEDS: traZODone HCL 50 MG TAB PO SCH (22:49)
[2022-08-06] MEDS: LORazepam 2MG/ML-1ML VIAL IV PRN ×2 (00:20→09:10)
[2022-08-06 05:00] VITALS: BP 126/67
[2022-08-06] MEDS: SODIUM CHLORIDE 0.9% 1,000 ML IV SCH ×2 (05:33→19:51)
[2022-08-06] MEDS: HYDROcodone-ACET 5/325MG TAB PO PRN ×2 (05:57→17:53)
[2022-08-06] MEDS: DICYCLOMINE HCL 10 MG CAP PO SCH ×4 (05:58→21:25)
[2022-08-06] MEDS: metroNIDAZOLE 500MG/100ML 100 ML IV SCH ×3 (05:58→21:24)
[2022-08-06] MEDS: LEVOTHYROXINE SODIUM 25 MCG TAB PO SCH (06:00)
[2022-08-06 09:00] VITALS: BP 112/67
[2022-08-06] MEDS: PANTOPRAZOLE 40 MG/10 ML VIAL INJ IV SCH (09:08)
[2022-08-06] MEDS: cefTRIAXone 1GM/50ML D5W 50 ML IV SCH (09:08)
[2022-08-06] MEDS: AMIODARONE HCL 200 MG TAB PO SCH ×2 (09:08→21:26)
[2022-08-06] MEDS: levETIRAcetam 500 MG TAB PO SCH (09:09)
[2022-08-06] MEDS: ENOXAPARIN SOD 40 MG/0.4 ML SYRINGE SC SCH (09:09)
[2022-08-06] MEDS: MESALAMINE 400mg Delayed Release Cap PO SCH ×2 (09:10→17:53)
[2022-08-06 09:23] LABS: Basophils # (auto) 0.1 10 ^3/uL (0-0.2); Eosinophils # (auto) 0.4 10 ^3/uL (0-0.8); Hemoglobin 9.9 g/dL (13.5-17.5)
[2022-08-06 09:26] LABS: Basophils % (auto) 0.4 % (0.0-2.0); Eosinophils % (auto) 2.8 % (0.0-7.0); Hematocrit 30.9 % (41.0-53.0); Lymphocytes # (auto) 1.5 10 ^3/uL (0.4-5.4); Lymphocytes % (auto) 9.8 % (10.0-50.0); Mean Corpuscular Hgb Conc. 32.1 g/dL (32.0-36.0); Mean Corpuscular Volume 87.3 fL (80.0-100.0); Monocytes # (auto) 1.3 10 ^3/uL (0-1.3); Monocytes % (auto) 8.7 % (0.0-12.0); Neutrophils % (auto) 78.3 % (37.0-80.0); Red Blood Cells 3.54 10^6/uL (4.5-5.90); Red Cell Distribution Width 14.5 % (11.8-14.3); White Blood Cell 15.3 10^3/uL (4.4-10.8)
[2022-08-06 09:39] LABS: Calcium 7.9 mg/dL (8.5-10.1); Potassium 3.4 mmol/L (3.5-5.1)
[2022-08-06 09:43] LABS: BUN/Creatinine Ratio 17.1; Bilirubin, Total 0.6 mg/dL (0.2-1.0)
[2022-08-06] MEDS: METOPROLOL SUCCINATE XL 50 MG TAB PO SCH (09:52)
[2022-08-06 12:38] VITALS: BP 98/54
[2022-08-06] MEDS ORDERED: POTASSIUM CHLORIDE 60 MEQ, LIDOCAINE 1% (LOCAL ANESTH.) 6 ML in SODIUM CHL 0.9% 500 ML IV ONE (14:30)
[2022-08-06 17:00] VITALS: BP 101/59
[2022-08-06] MEDS: traZODone HCL 50 MG TAB PO SCH (21:26)
[2022-08-06] MEDS: ATORVASTATIN 20 MG TAB PO SCH (21:26)
[2022-08-06 22:00] VITALS: BP 92/46
[2022-08-07] MEDS: HYDROcodone-ACET 5/325MG TAB PO PRN ×3 (00:39→10:14)
[2022-08-07 05:00] VITALS: BP 110/54
[2022-08-07] MEDS: metroNIDAZOLE 500MG/100ML 100 ML IV SCH ×2 (05:55→14:00)
[2022-08-07] MEDS: DICYCLOMINE HCL 10 MG CAP PO SCH ×2 (05:55→13:03)
[2022-08-07] MEDS: LEVOTHYROXINE SODIUM 25 MCG TAB PO SCH (06:22)
[2022-08-07 08:00] VITALS: BP 115/70
[2022-08-07] MEDS: cefTRIAXone 1GM/50ML D5W 50 ML IV SCH (08:36)
[2022-08-07] MEDS: MESALAMINE 400mg Delayed Release Cap PO SCH (08:37)
[2022-08-07] MEDS: SODIUM CHLORIDE 0.9% 1,000 ML IV SCH (10:09)
[2022-08-07] MEDS: METOPROLOL SUCCINATE XL 50 MG TAB PO SCH (10:15)
[2022-08-07] MEDS: AMIODARONE HCL 200 MG TAB PO SCH (10:16)
[2022-08-07] MEDS: levETIRAcetam 500 MG TAB PO SCH (10:17)
[2022-08-07] MEDS: PANTOPRAZOLE 40 MG/10 ML VIAL INJ IV SCH (10:18)
[2022-08-07] MEDS: ENOXAPARIN SOD 40 MG/0.4 ML SYRINGE SC SCH (10:18)
[2022-08-07] MEDS ORDERED: METR500T PO (11:49)
[2022-08-07] MEDS ORDERED: LEVO500T31 PO (11:49)
[2022-08-07] MEDS ORDERED: AMIO200T33 PO (11:49)
[2022-08-07] MEDS ORDERED: METO25TA36 PO (11:49)
[2022-08-07 12:00] VITALS: BP 99/57
[2022-08-07 14:23] VITALS: BP 110/54
[2022-08-07 16:00] VITALS: BP 116/73
== END 2022-08-07 17:40 | disposition hospice, home (50) | DRG 871 ==
LOC: ER 10:12 → EDBD 10:12 → OVERFLOW 15:43 → WEST WING 23:28 → TELE-WESTW 08-04 08:54
PROVIDERS: ADMIT Nurse Practitioner Family; ATTEND Family Medicine
DX: A41.9 Sepsis, unspecified organism (principal); I50.33 Acute on chronic diastolic (congestive) heart failure; E46 Unspecified protein-calorie malnutrition; I50.9 Heart failure, unspecified; E83.51 Hypocalcemia; K52.9 Noninfective gastroenteritis and colitis, unspecified; D64.9 Anemia, unspecified; I11.0 Hypertensive heart disease with heart failure; E66.9 Obesity, unspecified; E78.5 Hyperlipidemia, unspecified; E86.0 Dehydration; J44.9 Chronic obstructive pulmonary disease, unspecified; F32.A Depression, unspecified; Z20.822 Contact with and (suspected) exposure to COVID-19; E07.9 Disorder of thyroid, unspecified; E03.9 Hypothyroidism, unspecified; R56.9 Unspecified convulsions; I48.0 Paroxysmal atrial fibrillation; K31.9 Disease of stomach and duodenum, unspecified; R73.9 Hyperglycemia, unspecified; R74.01 Elevation of levels of liver transaminase levels; Z68.29 Body mass index [BMI] 29.0-29.9, adult; Z90.49 Acquired absence of other specified parts of digestive tract; Z88.8 Allergy status to other drugs, medicaments and biological substances
CPT/HCPCS: 36415; 71045; 74176; 80053; 80061; 83036; 83540; 83550; 83605; 83735; 83880; 84443; 84484; 85007; 85025; 85027; 85610; 87040; 87081; 87426; 93005; 93306; 96361; 96365; 96375; C9113; G0378; J0696; J2001; J2405; J3490

== ENCOUNTER 2022-09-22 19:15 | Inpatient (IN) | payer OTHER, MEDICARE ==
[~2022-09-22] VITALS: Ht 177.8 cm; Wt 90.1 kg
[~2022-09-22 19:15] MED LIST changes: +AMIO200T33 PO; +ASCO500T11 PO; +ATOR10TA PO; +CHOL20007 PO; +FURO40TA4 PO; +LEVO500T31 PO; +MELA3TAB27 PO; +METO25TA36 PO; +METR500T PO
[2022-09-22] MEDS ORDERED: VANCOMYCIN 1GM/250ML 250 ML IV ONE (19:30)
[2022-09-22] MEDS ORDERED: CEFEPIME 2 GM in SODIUM CHL 0.9% 50 ML IV ONE (19:30)
[2022-09-22] MEDS ORDERED: SODIUM CHLORIDE 0.9% 1,000 ML IV ONE ×2 (19:30)
[2022-09-22] MEDS: NOREPINEPHRINE 8 MG/250ML KIT 250 ML IV SCH (19:46)
[2022-09-22 19:54] LABS: Hematocrit 27.5 % (41.0-53.0); Hemoglobin 8.6 g/dL (13.5-17.5); Mean Corpuscular Hemoglobin 27.1 pg (28.0-32.0); Mean Corpuscular Hgb Conc. 31.1 g/dL (32.0-36.0); Mean Corpuscular Volume 87.2 fL (80.0-100.0); Red Blood Cells 3.15 10^6/uL (4.5-5.90); Red Cell Distribution Width 19.5 % (11.8-14.3); White Blood Cell 5.7 10^3/uL (4.4-10.8)
[2022-09-22 19:59] LABS: INR 1.29 (0.9-1.15)
[2022-09-22 20:01] LABS: Basophils % (manual) 0 (0.0-2.0); Blast Cells 0; Eosinophils % (manual) 0 (0-7); Metamyelocytes % 0; Myelocytes % 0; Promyelocytes % 0; Reactive Lymphocytes 0
[2022-09-22 20:04] LABS: Albumin 2.2 g/dL (3.4-5.0); Calcium 7.5 mg/dL (8.5-10.1)
[2022-09-22 20:08] LABS: Lactic Acid w/Reflex 10.1 mmol/L (0.4-2.0)
[2022-09-22 20:08] LABS: Urine Bacteria NONE SEEN /hpf (None Seen); Urine Blood 3+ /uL (Negative); Urine WBC 2190 /hpf (0 - 3); Urine WBC Clumps PRESENT /hpf (None Seen)
[2022-09-22 20:12] LABS: Bilirubin, Total 1.2 mg/dL (0.2-1.0); Total Protein 5.3 g/dL (6.4-8.2)
[2022-09-22 20:14] LABS: Band Neutrophils % (manual) 10; Lymphocytes % (manual) 9 (10.0-50.0); Monocytes % (manual) 7 (0-12)
[2022-09-22] MEDS ORDERED: ACETAMINOPHEN 650 MG RECT SUPP PR ONE (20:15)
[2022-09-22] MEDS: EPINEPHrine HCL 250 ML IV SCH (20:52)
[2022-09-22] MEDS: PHENYLEPHRINE IV 250 ML IV SCH (22:18)
[2022-09-22] MEDS ORDERED: AMIODARONE HCL 150 MG in D5W 5% 100 ML IV ONE (22:30)
[2022-09-22] MEDS ORDERED: AMIODARONE HCL (50 MG/ ML) 3 ML VIAL IV ONE (22:33)
[2022-09-22] MEDS ORDERED: AMIODARONE 450mg/250ml AE 250 ML IV SCH (22:45)
[2022-09-22] MEDS: VASOPRESSIN 20 UNITS in SODIUM CHL 0.9% 99 ML IV SCH (23:30)
[2022-09-22] MEDS ORDERED: VASOPRESSIN 20 UNIT/ML ONE (23:39)
[2022-09-22] MEDS ORDERED: NITROGLYCERIN 0.4 MG SL TAB SL PRN (23:45)
[2022-09-22] MEDS ORDERED: DEXTROSE (50%) 50ML SYRG IV PRN (23:45)
[2022-09-22] MEDS ORDERED: D5W/LACTATED RINGERS 1,000 ML IV SCH (23:45)
[2022-09-22] MEDS ORDERED: VANCOMYCIN PER PHARMACY 0 MG IV SCH (23:45)
[2022-09-22] MEDS ORDERED: ONDANSETRON HCL 4 MG/2 ML VIAL IV PRN (23:45)
[2022-09-22] MEDS ORDERED: MORPHINE SULFATE INJ 2 MG/ml SYRG IV PRN (23:45)
[2022-09-23] VITALS (8 sets, daily range): BP systolic 74–143; BP diastolic 46–76
[2022-09-23] MEDS: ALBUMIN 25% 100 ML IV SCH ×3 (00:41→17:53)
[2022-09-23] MEDS ORDERED: IBUPROFEN 100MG/5ML ORAL SUSP 100 MG/5 ML UD GT PRN (00:45)
[2022-09-23] MEDS: D5W/SOD CHL 0.45% 1,000 ML IV SCH ×2 (00:57→14:20)
[2022-09-23] MEDS: NOREPINEPHRINE 8 MG/250ML KIT 250 ML IV SCH ×3 (01:00→10:02)
[2022-09-23] MEDS: PHENYLEPHRINE IV 250 ML IV SCH ×5 (01:00→08:57)
[2022-09-23] MEDS: EPINEPHrine HCL 250 ML IV SCH (04:00)
[2022-09-23] MEDS: AMIODARONE 450mg/250ml AE 250 ML IV SCH ×2 (04:51→05:57)
[2022-09-23 06:16] LABS: Hemoglobin 8.6 g/dL (13.5-17.5)
[2022-09-23 06:21] LABS: Hematocrit 29.8 % (41.0-53.0); Mean Corpuscular Hemoglobin 27.1 pg (28.0-32.0); Mean Corpuscular Volume 93.6 fL (80.0-100.0); Red Blood Cells 3.18 10^6/uL (4.5-5.90); Red Cell Distribution Width 19.8 % (11.8-14.3)
[2022-09-23 06:38] LABS: Basophils % (manual) 0 (0.0-2.0); Blast Cells 0; Eosinophils % (manual) 0 (0-7); Myelocytes % 0; Promyelocytes % 0; Reactive Lymphocytes 0; White Blood Cell 39.4 10^3/uL (4.4-10.8)
[2022-09-23 06:40] LABS: Calcium 7.8 mg/dL (8.5-10.1)
[2022-09-23 06:53] LABS: Albumin 2.6 g/dL (3.4-5.0); BUN/Creatinine Ratio 14.5; Bilirubin, Total 1.3 mg/dL (0.2-1.0); Total Protein 6.2 g/dL (6.4-8.2)
[2022-09-23] MEDS: ACCU-CHEK COMFORT CURVE STRIP VI SCH ×4 (07:13→22:00)
[2022-09-23 07:32] LABS: Lactic Acid w/Reflex 14.1 mmol/L (0.4-2.0)
[2022-09-23] MEDS ORDERED: MIDAZOLAM HCL 5 MG/ML-1ML VIAL IV ONE (08:30)
[2022-09-23] MEDS ORDERED: SUCCINYLCHOLINE CHLORIDE 20 MG/ML 10ML VIAL IV ONE (08:30)
[2022-09-23] MEDS ORDERED: ETOMIDATE (2MG/ML) 20ML VIAL IV ONE (08:30)
[2022-09-23] MEDS: MIDAZOLAM DRIP 50 mg/50mL 50 ML IV SCH ×4 (08:30→22:38)
[2022-09-23] MEDS ORDERED: cefTRIAXone 1GM/50ML D5W 50 ML IV SCH (09:00)
[2022-09-23 09:20] LABS: Band Neutrophils % (manual) 15; Lymphocytes % (manual) 2 (10.0-50.0); Metamyelocytes % 12; Monocytes % (manual) 3 (0-12)
[2022-09-23] MEDS: fentaNYL Drip 2500mCg/250mlNS 250 ML IV SCH (09:41)
[2022-09-23] MEDS ORDERED: VANCOMYCIN 1GM/250ML 250 ML IV ONE (10:00)
[2022-09-23] MEDS: FAMOTIDINE (10MG/ML) 2ML VL IV SCH (10:14)
[2022-09-23] MEDS: HEPARIN SODIUM (PORCINE) 5000 UNITS/ML 1ML VIAL SC SCH (10:15)
[2022-09-23] MEDS: VASOPRESSIN 20 UNITS in SODIUM CHL 0.9% 99 ML IV SCH ×2 (10:37→19:59)
[2022-09-23] MEDS ORDERED: SODIUM BICARBONATE 8.4 % INJ 50ML VIAL IV ONE ×2 (11:00→21:53)
[2022-09-23] MEDS ORDERED: VANCOMYCIN PER PHARMACY 0 MG IV SCH (11:00)
[2022-09-23] MEDS: InsuLIN REG 1unit/0.01ml Soln (100units/ml) SC SCH ×4 (11:30→22:00)
[2022-09-23] MEDS: PIPERACILLIN-TAZOB 2.25GM 50 ML IV SCH ×2 (13:43→18:11)
[2022-09-23] MEDS ORDERED: PIPERACILLIN-TAZOB 3.375GM 100 ML IV SCH (14:00)
[2022-09-23] MEDS: SODIUM BICARBONATE 50ML VIAL 150 ML in D5W 5% 1,000 ML IV SCH ×2 (14:07→22:21)
[2022-09-23] MEDS: EPINEPHrine HCL INJECTION 16 MG in D5W 5% 234 ML IV SCH (14:15)
[2022-09-23] MEDS ORDERED: NOREPINEPHRINE 8 MG/250ML KIT 250 ML IV ONE (14:33)
[2022-09-23] MEDS: PHENYLEPHRINE INJ 80 MG in SODIUM CHL 0.9% 242 ML IV SCH (15:54)
[2022-09-23] MEDS ORDERED: VANCOMYCIN 500 MG in D5W 5% 100 ML IV ONE (16:00)
[2022-09-23] MEDS: NOREPINEPHRINE BITARTRATE 32 MG in SODIUM CHL 0.9% 218 ML IV SCH (18:56)
[2022-09-23 19:44] LABS: Calcium 7.2 mg/dL (8.5-10.1); Potassium 3.5 mmol/L (3.5-5.1)
[2022-09-23 19:46] LABS: BUN/Creatinine Ratio 19.5
[2022-09-24] VITALS (70 sets, daily range): BP systolic 95–147; BP diastolic 37–83
[2022-09-24] MEDS: FAMOTIDINE (10MG/ML) 2ML VL IV SCH ×3 (00:35→21:22)
[2022-09-24] MEDS: HEPARIN SODIUM (PORCINE) 5000 UNITS/ML 1ML VIAL SC SCH ×3 (00:35→21:21)
[2022-09-24] MEDS: PIPERACILLIN-TAZOB 2.25GM 50 ML IV SCH ×4 (00:35→19:29)
[2022-09-24 02:46] LABS: Urine Bacteria FEW /hpf (None Seen); Urine Blood 3+ /uL (Negative); Urine Mucus FEW (None Seen); Urine Specific Gravity 1.013 (1.001-1.035); Urine WBC 14 /hpf (0 - 3)
[2022-09-24 02:49] LABS: Protein, Urine 75.2 mg/dL (0.0-11.9)
[2022-09-24] MEDS: D5W/SOD CHL 0.45% 1,000 ML IV SCH ×2 (03:40→17:00)
[2022-09-24] MEDS: MIDAZOLAM DRIP 50 mg/50mL 50 ML IV SCH ×5 (03:52→19:37)
[2022-09-24] MEDS ORDERED: SODIUM BICARBONATE 8.4 % INJ 50ML VIAL IV ONE (04:08)
[2022-09-24] MEDS: SODIUM BICARBONATE 50ML VIAL 150 ML in D5W 5% 1,000 ML IV SCH (04:13)
[2022-09-24] MEDS: ACCU-CHEK COMFORT CURVE STRIP VI SCH ×4 (06:37→21:34)
[2022-09-24] MEDS: InsuLIN REG 1unit/0.01ml Soln (100units/ml) SC SCH ×4 (06:39→21:34)
[2022-09-24 07:51] LABS: Hemoglobin 8.7 g/dL (13.5-17.5)
[2022-09-24 07:55] LABS: Mean Corpuscular Hemoglobin 26.9 pg (28.0-32.0); Mean Corpuscular Hgb Conc. 32.1 g/dL (32.0-36.0); Mean Corpuscular Volume 83.7 fL (80.0-100.0); Red Blood Cells 3.22 10^6/uL (4.5-5.90); Red Cell Distribution Width 18.9 % (11.8-14.3)
[2022-09-24 07:58] LABS: White Blood Cell 35.2 10^3/uL (4.4-10.8)
[2022-09-24 08:00] LABS: BUN/Creatinine Ratio 19.7; Basophils % (manual) 0 (0.0-2.0); Blast Cells 0; Eosinophils % (manual) 0 (0-7); Myelocytes % 0; Promyelocytes % 0; Reactive Lymphocytes 0; Uric Acid 7.3 mg/dL (3.5-7.2)
[2022-09-24 08:05] LABS: INR 1.32 (0.9-1.15)
[2022-09-24 08:15] LABS: Albumin 2.6 g/dL (3.4-5.0); Bilirubin, Direct 0.6 mg/dL (0-0.2); Bilirubin, Total 1.4 mg/dL (0.2-1.0); Calcium 7.7 mg/dL (8.5-10.1); Phosphorus 2.6 mg/dL (2.5-4.90)
[2022-09-24 08:17] LABS: Band Neutrophils % (manual) 31; Lymphocytes % (manual) 3 (10.0-50.0); Metamyelocytes % 2; Monocytes % (manual) 7 (0-12)
[2022-09-24] MEDS: VASOPRESSIN 20 UNITS in SODIUM CHL 0.9% 99 ML IV SCH ×2 (08:29→19:36)
[2022-09-24] MEDS: fentaNYL Drip 2500mCg/250mlNS 250 ML IV SCH (09:30)
[2022-09-24] MEDS: LACTULOSE 20Gm/30ML SOLN PO SCH ×2 (10:25→21:21)
[2022-09-24] MEDS: EPINEPHrine HCL INJECTION 16 MG in D5W 5% 234 ML IV SCH (14:15)
[2022-09-24] MEDS: PHENYLEPHRINE INJ 80 MG in SODIUM CHL 0.9% 242 ML IV SCH (14:30)
[2022-09-24] MEDS: NOREPINEPHRINE BITARTRATE 32 MG in SODIUM CHL 0.9% 218 ML IV SCH (16:55)
[2022-09-24] MEDS: POTASSIUM CHL 20MEQ/100ML 100 ML IV SCH ×3 (17:11→20:01)
[2022-09-24] MEDS ORDERED: VANCOMYCIN 500 MG in D5W 5% 100 ML IV ONE (17:15)
[2022-09-25] VITALS (103 sets, daily range): BP systolic 73–123; BP diastolic 47–81
[2022-09-25] MEDS: PIPERACILLIN-TAZOB 2.25GM 50 ML IV SCH ×3 (00:13→12:11)
[2022-09-25] MEDS: MIDAZOLAM DRIP 50 mg/50mL 50 ML IV SCH ×3 (00:14→23:42)
[2022-09-25 03:51] LABS: Basophils # (auto) 0 10 ^3/uL (0-0.2); Basophils % (auto) 0.2 % (0.0-2.0); Eosinophils # (auto) 0.1 10 ^3/uL (0-0.8); Mean Corpuscular Hgb Conc. 31.8 g/dL (32.0-36.0)
[2022-09-25 03:54] LABS: Eosinophils % (auto) 0.2 % (0.0-7.0); Hematocrit 34.4 % (41.0-53.0); Hemoglobin 10.9 g/dL (13.5-17.5); Lymphocytes # (auto) 1.3 10 ^3/uL (0.4-5.4); Lymphocytes % (auto) 5.6 % (10.0-50.0); Mean Corpuscular Hemoglobin 26.5 pg (28.0-32.0); Mean Corpuscular Volume 83.3 fL (80.0-100.0); Monocytes # (auto) 0.8 10 ^3/uL (0-1.3); Monocytes % (auto) 3.5 % (0.0-12.0); Neutrophils # (auto) 20.4 10 ^3/uL (1.6-8.6); Neutrophils % (auto) 90.5 % (37.0-80.0); Red Blood Cells 4.13 10^6/uL (4.5-5.90); Red Cell Distribution Width 19.2 % (11.8-14.3); White Blood Cell 22.6 10^3/uL (4.4-10.8)
[2022-09-25 04:09] LABS: BUN/Creatinine Ratio 23.2; Potassium 3.1 mmol/L (3.5-5.1)
[2022-09-25] MEDS: ACCU-CHEK COMFORT CURVE STRIP VI SCH ×4 (05:52→22:26)
[2022-09-25] MEDS: InsuLIN REG 1unit/0.01ml Soln (100units/ml) SC SCH ×4 (05:53→22:00)
[2022-09-25] MEDS: D5W/SOD CHL 0.45% 1,000 ML IV SCH (05:53)
[2022-09-25] MEDS: VASOPRESSIN 20 UNITS in SODIUM CHL 0.9% 99 ML IV SCH ×2 (07:18→18:12)
[2022-09-25 09:19] LABS: Hepatitis B Surface Antibody Negative (Negative)
[2022-09-25] MEDS: LACTULOSE 20Gm/30ML SOLN PO SCH ×2 (09:26→22:25)
[2022-09-25] MEDS: POTASSIUM CHL 20MEQ/100ML 100 ML IV SCH ×3 (09:26→12:29)
[2022-09-25] MEDS: FAMOTIDINE (10MG/ML) 2ML VL IV SCH ×2 (09:28→22:23)
[2022-09-25] MEDS: VANCOMYCIN 1GM/250ML 250 ML IV SCH (09:29)
[2022-09-25] MEDS: HEPARIN SODIUM (PORCINE) 5000 UNITS/ML 1ML VIAL SC SCH ×2 (09:31→22:19)
[2022-09-25 09:35] LABS: Hepatitis A Total Antibody Positive (Negative)
[2022-09-25 11:44] LABS: Hepatitis B Core IgM Negative
[2022-09-25 11:46] LABS: Hepatitis C Antibody Negative (Negative)
[2022-09-25 11:47] LABS: Hepatitis A Ab IgM Negative
[2022-09-25] MEDS: fentaNYL Drip 2500mCg/250mlNS 250 ML IV SCH (11:54)
[2022-09-25] MEDS ORDERED: MAGNESIUM SULFATE 1GM/100ML 100 ML IV ONE (12:00)
[2022-09-25] MEDS: EPINEPHrine HCL INJECTION 16 MG in D5W 5% 234 ML IV SCH (14:15)
[2022-09-25] MEDS: NOREPINEPHRINE BITARTRATE 32 MG in SODIUM CHL 0.9% 218 ML IV SCH (14:15)
[2022-09-25] MEDS: PHENYLEPHRINE INJ 80 MG in SODIUM CHL 0.9% 242 ML IV SCH (14:30)
[2022-09-25] MEDS ORDERED: FLEET ENEMA(ADULT) 135 ML PR ONE (22:00)
[2022-09-25] MEDS: MEROPENEM 1GM IVPB 100 ML IV SCH (22:10)
[2022-09-26] VITALS (98 sets, daily range): BP systolic 85–148; BP diastolic 49–89
[2022-09-26 03:52] LABS: Hemoglobin 8.7 g/dL (13.5-17.5); Mean Corpuscular Hgb Conc. 31.9 g/dL (32.0-36.0); Red Blood Cells 3.31 10^6/uL (4.5-5.90)
[2022-09-26 03:54] LABS: Hematocrit 27.4 % (41.0-53.0); Mean Corpuscular Hemoglobin 26.4 pg (28.0-32.0); Mean Corpuscular Volume 82.9 fL (80.0-100.0); Red Cell Distribution Width 19.1 % (11.8-14.3); White Blood Cell 29.2 10^3/uL (4.4-10.8)
[2022-09-26 04:03] LABS: Basophils % (manual) 0 (0.0-2.0); Blast Cells 0; Eosinophils % (manual) 0 (0-7); Metamyelocytes % 0; Myelocytes % 0; Promyelocytes % 0
[2022-09-26 04:08] LABS: BUN/Creatinine Ratio 20.5; Calcium 8.1 mg/dL (8.5-10.1); Potassium 3.2 mmol/L (3.5-5.1)
[2022-09-26] MEDS: VASOPRESSIN 20 UNITS in SODIUM CHL 0.9% 99 ML IV SCH ×2 (05:03→16:26)
[2022-09-26] MEDS: MIDAZOLAM DRIP 50 mg/50mL 50 ML IV SCH (05:26)
[2022-09-26 05:39] LABS: Band Neutrophils % (manual) 17; Lymphocytes % (manual) 16 (10.0-50.0); Monocytes % (manual) 3 (0-12); Reactive Lymphocytes 1
[2022-09-26] MEDS: InsuLIN REG 1unit/0.01ml Soln (100units/ml) SC SCH ×4 (06:25→22:00)
[2022-09-26] MEDS: ACCU-CHEK COMFORT CURVE STRIP VI SCH ×4 (06:26→22:11)
[2022-09-26] MEDS: NOREPINEPHRINE BITARTRATE 32 MG in SODIUM CHL 0.9% 218 ML IV SCH ×3 (07:00→23:13)
[2022-09-26] MEDS: fentaNYL Drip 2500mCg/250mlNS 250 ML IV SCH (09:30)
[2022-09-26] MEDS: VANCOMYCIN 1GM/250ML 250 ML IV SCH (09:37)
[2022-09-26] MEDS: LACTULOSE 20Gm/30ML SOLN PO SCH ×2 (10:55→21:49)
[2022-09-26] MEDS: MEROPENEM 1GM IVPB 100 ML IV SCH ×2 (11:03→21:46)
[2022-09-26] MEDS: FAMOTIDINE (10MG/ML) 2ML VL IV SCH ×2 (11:03→21:43)
[2022-09-26] MEDS ORDERED: PANTOPRAZOLE 40 MG/10 ML VIAL INJ IV ONE (11:30)
[2022-09-26] MEDS: HEPARIN SODIUM (PORCINE) 5000 UNITS/ML 1ML VIAL SC SCH ×2 (12:33→21:55)
[2022-09-26] MEDS: D5W/SOD CHL 0.45% 1,000 ML IV SCH (12:41)
[2022-09-26] MEDS: POTASSIUM CHL 20MEQ/100ML 100 ML IV SCH ×2 (12:41→14:37)
[2022-09-26] MEDS: EPINEPHrine HCL INJECTION 16 MG in D5W 5% 234 ML IV SCH (14:15)
[2022-09-26] MEDS: PHENYLEPHRINE INJ 80 MG in SODIUM CHL 0.9% 242 ML IV SCH (14:30)
[2022-09-27] VITALS (90 sets, daily range): BP systolic 86–136; BP diastolic 49–75
[2022-09-27] MEDS: VASOPRESSIN 20 UNITS in SODIUM CHL 0.9% 99 ML IV SCH ×2 (03:33→14:40)
[2022-09-27 03:37] LABS: Basophils # (auto) 0.1 10 ^3/uL (0-0.2); Basophils % (auto) 0.4 % (0.0-2.0); Eosinophils # (auto) 0.1 10 ^3/uL (0-0.8); Eosinophils % (auto) 0.9 % (0.0-7.0); Hematocrit 27.8 % (41.0-53.0); Lymphocytes # (auto) 2.1 10 ^3/uL (0.4-5.4); Lymphocytes % (auto) 13.1 % (10.0-50.0); Mean Corpuscular Hemoglobin 27.3 pg (28.0-32.0); Mean Corpuscular Hgb Conc. 32.2 g/dL (32.0-36.0); Mean Corpuscular Volume 84.7 fL (80.0-100.0); Monocytes # (auto) 1.1 10 ^3/uL (0-1.3); Monocytes % (auto) 6.8 % (0.0-12.0); Neutrophils # (auto) 12.7 10 ^3/uL (1.6-8.6); Neutrophils % (auto) 78.8 % (37.0-80.0); Nucleated Red Blood Cells % 0.1 %; Red Blood Cells 3.29 10^6/uL (4.5-5.90); Red Cell Distribution Width 19.7 % (11.8-14.3); White Blood Cell 16.1 10^3/uL (4.4-10.8)
[2022-09-27 03:54] LABS: Calcium 8.3 mg/dL (8.5-10.1); Potassium 3.5 mmol/L (3.5-5.1)
[2022-09-27] MEDS: ACCU-CHEK COMFORT CURVE STRIP VI SCH ×4 (06:48→22:25)
[2022-09-27] MEDS: InsuLIN REG 1unit/0.01ml Soln (100units/ml) SC SCH ×4 (06:48→22:00)
[2022-09-27] MEDS: MIDAZOLAM DRIP 50 mg/50mL 50 ML IV SCH ×2 (08:30→23:23)
[2022-09-27] MEDS: fentaNYL Drip 2500mCg/250mlNS 250 ML IV SCH (09:30)
[2022-09-27] MEDS: D5W/SOD CHL 0.45% 1,000 ML IV SCH (09:37)
[2022-09-27] MEDS: VANCOMYCIN 1GM/250ML 250 ML IV SCH (09:46)
[2022-09-27] MEDS: MEROPENEM 1GM IVPB 100 ML IV SCH ×2 (09:47→22:23)
[2022-09-27] MEDS: LACTULOSE 20Gm/30ML SOLN PO SCH ×2 (09:48→22:23)
[2022-09-27] MEDS: FAMOTIDINE (10MG/ML) 2ML VL IV SCH ×2 (09:48→22:23)
[2022-09-27] MEDS: PANTOPRAZOLE 40 MG/10 ML VIAL INJ IV SCH (09:48)
[2022-09-27] MEDS: HEPARIN SODIUM (PORCINE) 5000 UNITS/ML 1ML VIAL SC SCH ×2 (09:52→22:24)
[2022-09-27] MEDS: D5W 5% 1,000 ML IV SCH ×2 (13:43→17:19)
[2022-09-27] MEDS: EPINEPHrine HCL INJECTION 16 MG in D5W 5% 234 ML IV SCH (14:00)
[2022-09-27] MEDS: PHENYLEPHRINE INJ 80 MG in SODIUM CHL 0.9% 242 ML IV SCH (14:00)
[2022-09-28] VITALS (101 sets, daily range): BP systolic 76–140; BP diastolic 42–83
[2022-09-28] MEDS: D5W 5% 1,000 ML IV SCH (01:19)
[2022-09-28] MEDS: NOREPINEPHRINE BITARTRATE 32 MG in SODIUM CHL 0.9% 218 ML IV SCH (01:20)
[2022-09-28] MEDS: VASOPRESSIN 20 UNITS in SODIUM CHL 0.9% 99 ML IV SCH ×2 (01:47→12:54)
[2022-09-28 04:58] LABS: Basophils # (auto) 0 10 ^3/uL (0-0.2); Basophils % (auto) 0.2 % (0.0-2.0); Eosinophils # (auto) 0.3 10 ^3/uL (0-0.8); Eosinophils % (auto) 2.8 % (0.0-7.0); Hematocrit 26.5 % (41.0-53.0); Hemoglobin 8.5 g/dL (13.5-17.5); Lymphocytes # (auto) 2.4 10 ^3/uL (0.4-5.4); Lymphocytes % (auto) 20.2 % (10.0-50.0); Mean Corpuscular Hemoglobin 26.9 pg (28.0-32.0); Mean Corpuscular Hgb Conc. 32.1 g/dL (32.0-36.0); Mean Corpuscular Volume 83.9 fL (80.0-100.0); Monocytes # (auto) 1.2 10 ^3/uL (0-1.3); Monocytes % (auto) 9.8 % (0.0-12.0); Neutrophils # (auto) 7.9 10 ^3/uL (1.6-8.6); Nucleated Red Blood Cells % 0.1 %; Red Blood Cells 3.16 10^6/uL (4.5-5.90); Red Cell Distribution Width 19.2 % (11.8-14.3); White Blood Cell 11.8 10^3/uL (4.4-10.8)
[2022-09-28 05:18] LABS: Albumin 2.1 g/dL (3.4-5.0); Calcium 7.9 mg/dL (8.5-10.1); Magnesium 1.8 mg/dL (1.6-2.6)
[2022-09-28 05:23] LABS: BUN/Creatinine Ratio 20.9; Bilirubin, Total 0.7 mg/dL (0.2-1.0); Phosphorus 3.6 mg/dL (2.5-4.90); Total Protein 5.6 g/dL (6.4-8.2)
[2022-09-28 05:43] LABS: Potassium 2.9 mmol/L (3.5-5.1)
[2022-09-28] MEDS: ACCU-CHEK COMFORT CURVE STRIP VI SCH ×4 (06:30→21:18)
[2022-09-28] MEDS: InsuLIN REG 1unit/0.01ml Soln (100units/ml) SC SCH ×4 (06:30→21:18)
[2022-09-28] MEDS ORDERED: POTASSIUM EFFERVESENT TAB 25 MEQ PO ONE (08:00)
[2022-09-28] MEDS: MAGNESIUM SULFATE 1GM/100ML 100 ML IV SCH ×3 (08:51→12:00)
[2022-09-28] MEDS: POTASSIUM CHL 20MEQ/100ML 100 ML IV SCH ×2 (08:52→10:27)
[2022-09-28] MEDS ORDERED: BUMETANIDE 2.5mg/10ml (0.25 mg/ml) INJ IV ONE (09:15)
[2022-09-28] MEDS: fentaNYL Drip 2500mCg/250mlNS 250 ML IV SCH (09:30)
[2022-09-28] MEDS: PANTOPRAZOLE 40 MG/10 ML VIAL INJ IV SCH (10:28)
[2022-09-28] MEDS: MEROPENEM 1GM IVPB 100 ML IV SCH ×2 (10:28→21:23)
[2022-09-28] MEDS: FAMOTIDINE (10MG/ML) 2ML VL IV SCH ×2 (10:28→21:19)
[2022-09-28] MEDS: LACTULOSE 20Gm/30ML SOLN PO SCH ×2 (10:29→21:19)
[2022-09-28] MEDS: VANCOMYCIN 1GM/250ML 250 ML IV SCH (10:29)
[2022-09-28] MEDS: HEPARIN SODIUM (PORCINE) 5000 UNITS/ML 1ML VIAL SC SCH ×2 (10:32→21:20)
[2022-09-28] MEDS: EPINEPHrine HCL INJECTION 16 MG in D5W 5% 234 ML IV SCH (14:15)
[2022-09-28] MEDS: PHENYLEPHRINE INJ 80 MG in SODIUM CHL 0.9% 242 ML IV SCH (14:30)
[2022-09-29] VITALS (100 sets, daily range): BP systolic 76–133; BP diastolic 39–96
[2022-09-29] MEDS: VASOPRESSIN 20 UNITS in SODIUM CHL 0.9% 99 ML IV SCH ×3 (00:01→22:15)
[2022-09-29] MEDS: D5W 5% 1,000 ML IV SCH ×3 (01:41→06:59)
[2022-09-29] MEDS: MIDAZOLAM DRIP 50 mg/50mL 50 ML IV SCH (03:48)
[2022-09-29 05:17] LABS: Calcium 7.7 mg/dL (8.5-10.1); Potassium 3.2 mmol/L (3.5-5.1)
[2022-09-29 05:21] LABS: Bilirubin, Total 0.6 mg/dL (0.2-1.0); Total Protein 5.5 g/dL (6.4-8.2)
[2022-09-29] MEDS: ACCU-CHEK COMFORT CURVE STRIP VI SCH ×4 (06:09→21:57)
[2022-09-29] MEDS: POTASSIUM CHL 20MEQ/100ML 100 ML IV SCH ×4 (06:30→12:41)
[2022-09-29] MEDS: InsuLIN REG 1unit/0.01ml Soln (100units/ml) SC SCH ×4 (06:44→21:57)
[2022-09-29] MEDS: fentaNYL Drip 2500mCg/250mlNS 250 ML IV SCH (09:30)
[2022-09-29] MEDS: VANCOMYCIN 1GM/250ML 250 ML IV SCH (09:42)
[2022-09-29] MEDS: PANTOPRAZOLE 40 MG/10 ML VIAL INJ IV SCH (09:44)
[2022-09-29] MEDS: LACTULOSE 20Gm/30ML SOLN PO SCH ×2 (09:44→21:42)
[2022-09-29] MEDS: FAMOTIDINE (10MG/ML) 2ML VL IV SCH ×2 (09:44→21:42)
[2022-09-29] MEDS: MEROPENEM 1GM IVPB 100 ML IV SCH ×2 (09:44→21:42)
[2022-09-29] MEDS: HEPARIN SODIUM (PORCINE) 5000 UNITS/ML 1ML VIAL SC SCH ×2 (09:45→21:54)
[2022-09-29] MEDS ORDERED: POTASSIUM EFFERVESENT TAB 25 MEQ PO ONE (12:00)
[2022-09-29] MEDS ORDERED: BUMETANIDE 2.5mg/10ml (0.25 mg/ml) INJ IV ONE (13:30)
[2022-09-29] MEDS: EPINEPHrine HCL INJECTION 16 MG in D5W 5% 234 ML IV SCH (14:15)
[2022-09-29] MEDS: NOREPINEPHRINE BITARTRATE 32 MG in SODIUM CHL 0.9% 218 ML IV SCH (14:15)
[2022-09-29] MEDS: PHENYLEPHRINE INJ 80 MG in SODIUM CHL 0.9% 242 ML IV SCH (14:30)
[2022-09-30] VITALS (90 sets, daily range): BP systolic 77–134; BP diastolic 35–83
[2022-09-30] MEDS: InsuLIN REG 1unit/0.01ml Soln (100units/ml) SC SCH ×4 (07:00→22:00)
[2022-09-30] MEDS: ACCU-CHEK COMFORT CURVE STRIP VI SCH ×4 (07:04→22:17)
[2022-09-30] MEDS: D5W 5% 1,000 ML IV SCH ×2 (07:06→11:07)
[2022-09-30 07:24] LABS: Potassium 3.6 mmol/L (3.5-5.1)
[2022-09-30 07:31] LABS: BUN/Creatinine Ratio 11.2; Calcium 8.1 mg/dL (8.5-10.1); Magnesium 2.6 mg/dL (1.6-2.6)
[2022-09-30 07:35] LABS: Hematocrit 26.8 % (41.0-53.0); Hemoglobin 8.9 g/dL (13.5-17.5); Mean Corpuscular Hemoglobin 27.7 pg (28.0-32.0); Mean Corpuscular Hgb Conc. 33.3 g/dL (32.0-36.0); Mean Corpuscular Volume 83.1 fL (80.0-100.0); Red Blood Cells 3.23 10^6/uL (4.5-5.90); Red Cell Distribution Width 19.1 % (11.8-14.3); White Blood Cell 11.5 10^3/uL (4.4-10.8)
[2022-09-30 07:36] LABS: Basophils % (manual) 0 (0.0-2.0); Blast Cells 0; Metamyelocytes % 0; Myelocytes % 0; Promyelocytes % 0; Reactive Lymphocytes 0
[2022-09-30] MEDS: MIDAZOLAM DRIP 50 mg/50mL 50 ML IV SCH ×2 (07:41→07:45)
[2022-09-30] MEDS: fentaNYL Drip 2500mCg/250mlNS 250 ML IV SCH ×2 (07:43→07:46)
[2022-09-30] MEDS: VASOPRESSIN 20 UNITS in SODIUM CHL 0.9% 99 ML IV SCH ×2 (07:43→07:46)
[2022-09-30] MEDS: EPINEPHrine HCL INJECTION 16 MG in D5W 5% 234 ML IV SCH (07:44)
[2022-09-30] MEDS: NOREPINEPHRINE BITARTRATE 32 MG in SODIUM CHL 0.9% 218 ML IV SCH ×2 (07:44→20:23)
[2022-09-30] MEDS: PHENYLEPHRINE INJ 80 MG in SODIUM CHL 0.9% 242 ML IV SCH (07:45)
[2022-09-30] MEDS: LACTULOSE 20Gm/30ML SOLN PO SCH (10:00)
[2022-09-30] MEDS: FAMOTIDINE (10MG/ML) 2ML VL IV SCH ×2 (10:00→22:17)
[2022-09-30] MEDS: PANTOPRAZOLE 40 MG/10 ML VIAL INJ IV SCH (11:04)
[2022-09-30] MEDS: MEROPENEM 1GM IVPB 100 ML IV SCH ×2 (11:04→22:16)
[2022-09-30] MEDS: VANCOMYCIN 1GM/250ML 250 ML IV SCH (11:05)
[2022-09-30] MEDS: HEPARIN SODIUM (PORCINE) 5000 UNITS/ML 1ML VIAL SC SCH ×2 (11:08→22:18)
[2022-09-30] MEDS ORDERED: POTASSIUM CHLORIDE 20 MEQ, LIDOCAINE 1% (LOCAL ANESTH.) 2 ML in SODIUM CHL 0.9% 100 ML IV ONE (11:45)
[2022-09-30 13:03] LABS: Band Neutrophils % (manual) 8; Eosinophils % (manual) 4 (0-7); Lymphocytes % (manual) 17 (10.0-50.0); Monocytes % (manual) 4 (0-12)
[2022-09-30] MEDS ORDERED: ALBUMIN 25% 100 ML IV SCH (14:15)
[2022-09-30] MEDS: ALBUMIN 25% 100 ML IV SCH ×2 (16:09→22:42)
[2022-09-30] MEDS: ACETAMINOPHEN 325 MG TAB PO PRN (18:39)
[2022-10-01] VITALS (48 sets, daily range): BP systolic 89–120; BP diastolic 43–71
[2022-10-01] MEDS: D5W 5% 1,000 ML IV SCH (01:00)
[2022-10-01 04:17] LABS: Hemoglobin 8.2 g/dL (13.5-17.5)
[2022-10-01 04:18] LABS: Hematocrit 24.8 % (41.0-53.0); Mean Corpuscular Hemoglobin 27.5 pg (28.0-32.0); Mean Corpuscular Volume 83.5 fL (80.0-100.0); Red Blood Cells 2.97 10^6/uL (4.5-5.90); Red Cell Distribution Width 18.8 % (11.8-14.3); White Blood Cell 9.4 10^3/uL (4.4-10.8)
[2022-10-01 04:26] LABS: Basophils % (manual) 0 (0.0-2.0); Blast Cells 0; Metamyelocytes % 0; Promyelocytes % 0; Reactive Lymphocytes 0
[2022-10-01 04:33] LABS: Albumin 2.8 g/dL (3.4-5.0); BUN/Creatinine Ratio 9.7; Magnesium 2.1 mg/dL (1.6-2.6); Potassium 3.4 mmol/L (3.5-5.1)
[2022-10-01 04:36] LABS: Bilirubin, Total 0.7 mg/dL (0.2-1.0); Total Protein 5.6 g/dL (6.4-8.2)
[2022-10-01] MEDS: InsuLIN REG 1unit/0.01ml Soln (100units/ml) SC SCH ×4 (06:23→22:00)
[2022-10-01] MEDS: ACCU-CHEK COMFORT CURVE STRIP VI SCH ×4 (06:23→22:15)
[2022-10-01] MEDS: ALBUMIN 25% 100 ML IV SCH (06:57)
[2022-10-01 07:38] LABS: Band Neutrophils % (manual) 6; Eosinophils % (manual) 4 (0-7); Lymphocytes % (manual) 23 (10.0-50.0); Monocytes % (manual) 8 (0-12); Myelocytes % 1
[2022-10-01] MEDS: VANCOMYCIN 1GM/250ML 250 ML IV SCH (09:34)
[2022-10-01] MEDS: PANTOPRAZOLE 40 MG/10 ML VIAL INJ IV SCH (09:35)
[2022-10-01] MEDS: HEPARIN SODIUM (PORCINE) 5000 UNITS/ML 1ML VIAL SC SCH ×2 (09:37→22:19)
[2022-10-01] MEDS: MEROPENEM 1GM IVPB 100 ML IV SCH ×2 (10:44→22:10)
[2022-10-01] MEDS ORDERED: POTASSIUM EFFERVESENT TAB 25 MEQ GT ONE (11:15)
[2022-10-01] MEDS: MUPIROCIN 2% OINT 15gm or 22gm FOR MRSA NARES EACHNOSTRI SCH (22:24)
[2022-10-02] MEDS: ACETAMINOPHEN 325 MG TAB PO PRN ×3 (02:21→13:39)
[2022-10-02 05:15] VITALS: BP 93/52
[2022-10-02] MEDS: ACCU-CHEK COMFORT CURVE STRIP VI SCH ×4 (05:35→22:18)
[2022-10-02] MEDS: InsuLIN REG 1unit/0.01ml Soln (100units/ml) SC SCH ×4 (06:11→22:00)
[2022-10-02 06:21] LABS: BUN/Creatinine Ratio 13.8; Calcium 8.2 mg/dL (8.5-10.1); Potassium 3.4 mmol/L (3.5-5.1)
[2022-10-02 06:25] LABS: Basophils # (auto) 0 10 ^3/uL (0-0.2); Basophils % (auto) 0.3 % (0.0-2.0); Eosinophils # (auto) 0.4 10 ^3/uL (0-0.8); Eosinophils % (auto) 4.1 % (0.0-7.0); Hematocrit 26.6 % (41.0-53.0); Hemoglobin 8.6 g/dL (13.5-17.5); Lymphocytes # (auto) 2.6 10 ^3/uL (0.4-5.4); Mean Corpuscular Hemoglobin 27.3 pg (28.0-32.0); Mean Corpuscular Hgb Conc. 32.4 g/dL (32.0-36.0); Monocytes # (auto) 0.8 10 ^3/uL (0-1.3); Monocytes % (auto) 8.5 % (0.0-12.0); Neutrophils # (auto) 6.1 10 ^3/uL (1.6-8.6); Neutrophils % (auto) 61.1 % (37.0-80.0); Nucleated Red Blood Cells % 0.2 %; Red Blood Cells 3.16 10^6/uL (4.5-5.90); Red Cell Distribution Width 19.2 % (11.8-14.3); White Blood Cell 9.9 10^3/uL (4.4-10.8)
[2022-10-02 08:00] VITALS: BP 112/78
[2022-10-02] MEDS: MUPIROCIN 2% OINT 15gm or 22gm FOR MRSA NARES EACHNOSTRI SCH ×2 (10:06→22:00)
[2022-10-02] MEDS: VANCOMYCIN 1GM/250ML 250 ML IV SCH (10:06)
[2022-10-02] MEDS: HEPARIN SODIUM (PORCINE) 5000 UNITS/ML 1ML VIAL SC SCH ×2 (10:07→22:20)
[2022-10-02] MEDS: PANTOPRAZOLE 40 MG/10 ML VIAL INJ IV SCH (10:07)
[2022-10-02] MEDS ORDERED: MULT-1018 PO (10:54)
[2022-10-02] MEDS ORDERED: POTASSIUM EFFERVESENT TAB 25 MEQ GT ONE (11:00)
[2022-10-02] MEDS: MEROPENEM 1GM IVPB 100 ML IV SCH ×2 (11:50→22:00)
[2022-10-02 12:00] VITALS: BP 91/49
[2022-10-02 16:00] VITALS: BP 101/57
[2022-10-02 22:00] VITALS: BP 100/61
[2022-10-03] MEDS: ACETAMINOPHEN 325 MG TAB PO PRN ×2 (00:04→15:31)
[2022-10-03 05:00] VITALS: BP 103/58
[2022-10-03] MEDS: ACCU-CHEK COMFORT CURVE STRIP VI SCH ×3 (06:33→17:58)
[2022-10-03] MEDS: InsuLIN REG 1unit/0.01ml Soln (100units/ml) SC SCH ×3 (06:33→17:58)
[2022-10-03 08:32] VITALS: BP 107/65
[2022-10-03] MEDS: PANTOPRAZOLE 40 MG/10 ML VIAL INJ IV SCH (10:56)
[2022-10-03] MEDS: VANCOMYCIN 1GM/250ML 250 ML IV SCH (10:56)
[2022-10-03] MEDS: MUPIROCIN 2% OINT 15gm or 22gm FOR MRSA NARES EACHNOSTRI SCH (10:57)
[2022-10-03] MEDS: HEPARIN SODIUM (PORCINE) 5000 UNITS/ML 1ML VIAL SC SCH (10:59)
[2022-10-03 13:00] VITALS: BP 123/72
[2022-10-03] MEDS: MEROPENEM 1GM IVPB 100 ML IV SCH (13:00)
[2022-10-03 18:03] VITALS: BP 128/77
[2022-10-03 18:06] VITALS: BP 118/58
== END 2022-10-03 19:12 | disposition hospice, home (50) | DRG 870 ==
LOC: EDUNIT# 19:15 → EDBD 19:15 → ER 19:15 → OVERFLOW 23:39 → ICU WEST 09-24 05:18 → TELE-WESTW 10-01 22:48
PROVIDERS: ADMIT Nurse Practitioner Family; ATTEND Internal Medicine Pulmonary Disease
PROC: 06HN33Z Insertion of Infusion Device into Left Femoral Vein, Percutaneous Approach (ICD-10-PCS; 2022-09-22)
PROC: B54CZZA Ultrasonography of Left Lower Extremity Veins, Guidance (ICD-10-PCS; 2022-09-22)
PROC: 5A1955Z Respiratory Ventilation, Greater than 96 Consecutive Hours (ICD-10-PCS; principal; 2022-09-23)
PROC: 0BH17EZ Insertion of Endotracheal Airway into Trachea, Via Natural or Artificial Opening (ICD-10-PCS; 2022-09-23)
DX: A41.02 Sepsis due to Methicillin resistant Staphylococcus aureus (principal); I21.A1 Myocardial infarction type 2; J96.01 Acute respiratory failure with hypoxia; R65.21 Severe sepsis with septic shock; N17.0 Acute kidney failure with tubular necrosis; J15.212 Pneumonia due to Methicillin resistant Staphylococcus aureus; N39.0 Urinary tract infection, site not specified; J44.0 Chronic obstructive pulmonary disease with (acute) lower respiratory infection; E87.0 Hyperosmolality and hypernatremia; Z66 Do not resuscitate; K56.41 Fecal impaction; G40.909 Epilepsy, unspecified, not intractable, without status epilepticus; Z51.5 Encounter for palliative care; D63.8 Anemia in other chronic diseases classified elsewhere; B96.20 Unspecified Escherichia coli [E. coli] as the cause of diseases classified elsewhere; N18.31 Chronic kidney disease, stage 3a; Z20.822 Contact with and (suspected) exposure to COVID-19; E87.6 Hypokalemia; E66.01 Morbid (severe) obesity due to excess calories; R79.89 Other specified abnormal findings of blood chemistry; E88.09 Other disorders of plasma-protein metabolism, not elsewhere classified; I12.9 Hypertensive chronic kidney disease with stage 1 through stage 4 chronic kidney disease, or unspecified chronic kidney disease; Z68.28 Body mass index [BMI] 28.0-28.9, adult; Z79.899 Other long term (current) drug therapy; Z90.49 Acquired absence of other specified parts of digestive tract; Z99.3 Dependence on wheelchair; Z86.73 Personal history of transient ischemic attack (TIA), and cerebral infarction without residual deficits; Z88.8 Allergy status to other drugs, medicaments and biological substances
CPT/HCPCS: 36415; 36600; 70450; 71045; 74176; 76775; 80048; 80053; 80074; 80076; 80202; 81001; 82140; 82550; 82570; 82805; 82962; 83036; 83605; 83735; 83880; 84100; 84156; 84300; 84439; 84443; 84484; 84550; 85007; 85025; 85027; 85610; 86038; 86704; 86706; 86708; 86803; 86850; 86900; 86901; 87040; 87070; 87077; 87081; 87186; 87205; 87340; 87426; 92610; 93005; 94002; 94003; 99291; 99292; C9113; G0378; J0171; J0330; J0696; J1815; J2001; J2185; J2250; J2543; J3480; J3490; J7060; P9047

== ENCOUNTER 2023-10-04 15:27 | Inpatient (IN) | payer OTHER, MEDICARE ==
[~2023-10-04] VITALS: Ht 177.8 cm; Wt 132.4 kg
[~2023-10-04 15:27] MED LIST changes: -ASCO-22 PO; -ASCO500T11 PO; +ASCO500T16 PO; -BENZ1TAB2 PO; +BENZ1TAB6 PO; +IBUP-1455 PO; -IBUP800T26 PO; -LEVO-28 PO; -LEVO500T31 PO; +LEVO500T91 PO; +LORA-1123 PO; -LORA1TAB23 PO; -MET500T PO; -METO25TA36 PO; -METR500T PO; +OMEG100019 PO; -OMEG10003 PO; -SIMV-8 PO; +SIMV20TA20 PO; +TRAZ-228 PO; -TRAZ100T3 PO
[2023-10-04 16:19] LABS: Basophils # (auto) 0 10 ^3/uL (0-0.2); Basophils % (auto) 0.1 % (0.0-2.0); Eosinophils # (auto) 0 10 ^3/uL (0-0.8); Hemoglobin 7.1 g/dL (13.5-17.5); Mean Corpuscular Volume 92.9 fL (80.0-100.0)
[2023-10-04 16:21] LABS: Hematocrit 22.6 % (41.0-53.0); Lymphocytes # (auto) 1.6 10 ^3/uL (0.4-5.4); Lymphocytes % (auto) 6.9 % (10.0-50.0); Mean Corpuscular Hemoglobin 29.1 pg (28.0-32.0); Mean Corpuscular Hgb Conc. 31.3 g/dL (32.0-36.0); Monocytes # (auto) 1.8 10 ^3/uL (0-1.3); Monocytes % (auto) 7.8 % (0.0-12.0); Neutrophils # (auto) 19.3 10 ^3/uL (1.6-8.6); Neutrophils % (auto) 85.2 % (37.0-80.0); Red Blood Cells 2.43 10^6/uL (4.5-5.90); Red Cell Distribution Width 13.7 % (11.8-14.3); White Blood Cell 22.7 10^3/uL (4.4-10.8)
[2023-10-04] MEDS: SODIUM CHLORIDE 0.9% 2,000 ML IV ONE (16:30)
[2023-10-04] MEDS: cefTRIAXone 1GM/50ML D5W 50 ML IV ONE (16:30)
[2023-10-04 16:36] LABS: Alanine Aminotransferase 38 U/L (7-40); Albumin 3.5 g/dL (3.2-4.8); Alkaline Phosphatase 110 U/L (46-116); Anion Gap 11 (5-15); Aspartate Aminotransferase 99 U/L (13-40); BUN/Creatinine Ratio 15.2 (10.0-20.0); Blood Urea Nitrogen 42 mg/dL (9-23); Calcium 7.6 mg/dL (8.7-10.4); Carbon Dioxide 27 mmol/L (20-30); Chloride 107 mmol/L (98-107); Glucose 138 mg/dL (74-106); Magnesium 2.3 mg/dL (1.6-2.6); Sodium 145 mmol/L (136-145)
[2023-10-04 16:37] LABS: Bilirubin, Total 0.4 mg/dL (0.2-1.0); Total Protein 6.2 g/dL (5.7-8.2)
[2023-10-04 16:40] LABS: Potassium 2.3 mmol/L (3.5-5.1)
[2023-10-04] MEDS: POTASSIUM CHL 20MEQ/100ML 100 ML IV ONE (16:45)
[2023-10-04] MEDS: VANCOMYCIN 1GM/200ML 200 ML IV ONE (16:47)
[2023-10-04 18:55] LABS: Urine Bacteria MANY /hpf (None Seen); Urine Blood 1+ /uL (Negative); Urine Clarity HAZY (Clear); Urine Color Yellow (Yellow); Urine Protein, UAD 1+ (Negative); Urine Specific Gravity 1.015 (1.001-1.035); Urine Urobilinogen Normal (Negative); Urine WBC 198 /hpf (0 - 3); Urine pH 5.5 (5.0-8.0)
[2023-10-04 19:25] VITALS: PULSE 101; RESP 17; O2SAT 97
[2023-10-04 19:30] VITALS: PULSE 101; RESP 14; O2SAT 96
[2023-10-04 20:55] VITALS: BP 114/65; PULSE 97; RESP 14; TEMP 97.7
[2023-10-04 21:25] VITALS: BP 118/71; PULSE 98; RESP 16; TEMP 97.8
[2023-10-04] MEDS ORDERED: ACETAMINOPHEN 325 MG TAB PO PRN ×2 (21:45→22:00)
[2023-10-04] MEDS ORDERED: ONDANSETRON HCL 4 MG/2 ML VIAL IV PRN (22:00)
[2023-10-04] MEDS ORDERED: VANCOMYCIN PER PHARMACY 0 MG IV SCH (22:00)
[2023-10-04] MEDS ORDERED: DOCUSATE SOD 100 MG CAP PO PRN (22:00)
[2023-10-04] MEDS ORDERED: HYDROcodone-ACET 5/325MG TAB PO PRN (22:00)
[2023-10-04] MEDS ORDERED: NITROGLYCERIN 0.4 MG SL TAB SL PRN (22:45)
[2023-10-04] MEDS ORDERED: MORPHINE SULFATE INJ 2 MG/ml SYRG IV PRN (22:45)
[2023-10-04] MEDS: levETIRAcetam 500 mg/100ml 100 ML IV SCH (23:56)
[2023-10-04] MEDS: SODIUM CHLORIDE 0.9% 1,000 ML IV SCH (23:56)
[2023-10-04] MEDS: ATORVASTATIN 20 MG TAB PO SCH (23:56)
[2023-10-05 01:25] VITALS: BP 101/67; PULSE 102; RESP 19; TEMP 98.2
[2023-10-05 06:12] LABS: Basophils # (auto) 0 10 ^3/uL (0-0.2); Basophils % (auto) 0.1 % (0.0-2.0); Eosinophils # (auto) 0 10 ^3/uL (0-0.8); Eosinophils % (auto) 0.1 % (0.0-7.0); Hematocrit 25.5 % (41.0-53.0); Hemoglobin 8.5 g/dL (13.5-17.5); Lymphocytes # (auto) 1.2 10 ^3/uL (0.4-5.4); Lymphocytes % (auto) 6.6 % (10.0-50.0); Mean Corpuscular Hemoglobin 30.8 pg (28.0-32.0); Mean Corpuscular Hgb Conc. 33.3 g/dL (32.0-36.0); Mean Corpuscular Volume 92.6 fL (80.0-100.0); Monocytes # (auto) 1.3 10 ^3/uL (0-1.3); Monocytes % (auto) 7.6 % (0.0-12.0); Neutrophils # (auto) 14.9 10 ^3/uL (1.6-8.6); Neutrophils % (auto) 85.6 % (37.0-80.0); Red Blood Cells 2.75 10^6/uL (4.5-5.90); Red Cell Distribution Width 13.8 % (11.8-14.3); White Blood Cell 17.4 10^3/uL (4.4-10.8)
[2023-10-05 06:27] LABS: Alanine Aminotransferase 39 U/L (7-40); Albumin 3.1 g/dL (3.2-4.8); Alkaline Phosphatase 100 U/L (46-116); Anion Gap 12 (5-15); Aspartate Aminotransferase 89 U/L (13-40); BUN/Creatinine Ratio 17.6 (10.0-20.0); Bilirubin, Total 0.3 mg/dL (0.2-1.0); Blood Urea Nitrogen 49 mg/dL (9-23); Calcium 7.6 mg/dL (8.7-10.4); Carbon Dioxide 28 mmol/L (20-30); Chloride 107 mmol/L (98-107); Glucose 110 mg/dL (74-106); Sodium 147 mmol/L (136-145); Total Protein 5.2 g/dL (5.7-8.2)
[2023-10-05 06:32] LABS: Potassium 2.3 mmol/L (3.5-5.1)
[2023-10-05] MEDS: LEVOTHYROXINE SODIUM 25 MCG TAB PO SCH (07:00)
[2023-10-05 08:00] VITALS: PULSE 98; RESP 14; O2SAT 95
[2023-10-05] MEDS: cefTRIAXone 1GM/50ML D5W 50 ML IV SCH (09:26)
[2023-10-05] MEDS: ASPirin 81 mg TAB PO SCH (10:32)
[2023-10-05] MEDS: FAMOTIDINE (10MG/ML) 2ML VL IV SCH (10:32)
[2023-10-05] MEDS: POTASSIUM CHL 20MEQ/100ML 100 ML IV SCH (11:50)
[2023-10-05] MEDS: SOD CHL 0.45% WITH 20MEQ KCL 1,000 ML IV ONE (16:31)
[2023-10-05] MEDS: VANCOMYCIN 1GM/200ML 200 ML IV ONE (17:10)
[2023-10-05 20:40] VITALS: BP 119/76; PULSE 97; PULSE 99; RESP 19; TEMP 97.7; O2SAT 97
[2023-10-05 22:00] VITALS: BP 119/76; PULSE 97; RESP 19; TEMP 97.4; O2SAT 97
[2023-10-06] VITALS (8 sets, daily range): BP systolic 110–134; BP diastolic 69–88; PULSE 95–104; RESP 15–19; TEMP 97.8–98.8; O2SAT 96–98
[2023-10-06 06:19] LABS: Chloride 109 mmol/L (98-107); Potassium 2.6 mmol/L (3.5-5.1); Sodium 145 mmol/L (136-145)
[2023-10-06 06:20] LABS: Anion Gap 11 (5-15); Carbon Dioxide 25 mmol/L (20-30)
[2023-10-06 06:23] LABS: Basophils # (auto) 0 10 ^3/uL (0-0.2); Basophils % (auto) 0.3 % (0.0-2.0); Eosinophils # (auto) 0.2 10 ^3/uL (0-0.8); Eosinophils % (auto) 1.3 % (0.0-7.0); Hematocrit 26.5 % (41.0-53.0); Hemoglobin 8.7 g/dL (13.5-17.5); Lymphocytes # (auto) 1.3 10 ^3/uL (0.4-5.4); Lymphocytes % (auto) 8.5 % (10.0-50.0); Mean Corpuscular Hemoglobin 30.6 pg (28.0-32.0); Mean Corpuscular Volume 92.8 fL (80.0-100.0); Monocytes # (auto) 1.1 10 ^3/uL (0-1.3); Monocytes % (auto) 7.7 % (0.0-12.0); Neutrophils # (auto) 12.1 10 ^3/uL (1.6-8.6); Neutrophils % (auto) 82.2 % (37.0-80.0); Red Blood Cells 2.86 10^6/uL (4.5-5.90); Red Cell Distribution Width 14.1 % (11.8-14.3); White Blood Cell 14.7 10^3/uL (4.4-10.8)
[2023-10-06 06:25] LABS: BUN/Creatinine Ratio 16.5 (10.0-20.0); Blood Urea Nitrogen 41 mg/dL (9-23); Glucose 96 mg/dL (74-106)
[2023-10-06 06:31] LABS: INR 1.5 (0.9-1.15); Partial Thromboplastin Time 44.5 SEC (24.5-34.5); Prothrombin Time 15.3 sec (9.3-11.8)
[2023-10-06] MEDS: VANCOMYCIN 500 MG in D5W 5% 100 ML IV ONE (11:54)
[2023-10-06] MEDS: FLEET ENEMA(ADULT) 135 ML PR ONE (15:53)
[2023-10-06] MEDS: POTASSIUM CHL 20MEQ/100ML 100 ML IV SCH (19:25)
[2023-10-06] MEDS: POTASSIUM CHLORIDE 40 MEQ in SOD CHL 0.45% 1,000 ML IV SCH (20:30)
[2023-10-07 05:00] VITALS: BP 103/48; PULSE 91; RESP 15; TEMP 97.7; O2SAT 99
[2023-10-07 06:44] LABS: Anion Gap 10 (5-15); Calcium 8.2 mg/dL (8.5-10.1); Carbon Dioxide 27 mmol/L (20-30); Chloride 109 mmol/L (98-107); Potassium 2.8 mmol/L (3.5-5.1); Sodium 146 mmol/L (136-145)
[2023-10-07 06:50] LABS: Blood Urea Nitrogen 40 mg/dL (9-23); Glucose 97 mg/dL (74-106)
[2023-10-07 08:00] VITALS: PULSE 102; PULSE 95
[2023-10-07 08:05] VITALS: PULSE 95
[2023-10-07 09:12] VITALS: BP 126/78; PULSE 96; RESP 20; TEMP 97.6; O2SAT 97
[2023-10-07] MEDS ORDERED: BACDST PO (10:51)
[2023-10-07] MEDS ORDERED: LACT10PA2 PO (10:52)
[2023-10-07 12:09] VITALS: BP 132/83; PULSE 103; RESP 20; TEMP 98; O2SAT 100
[2023-10-07] MEDS: POTASSIUM CHL 20MEQ/100ML 100 ML IV SCH (12:39)
[2023-10-07] MEDS: POTASSIUM EFFERVESENT TAB 25 MEQ PO ONE (12:39)
[2023-10-07 13:42] LABS: Protein, Urine 167.2 mg/dL (0.0-11.9)
[2023-10-07 13:45] LABS: Creatinine, Urine 69.2 mg/dL (30.0-125.0); Urine Protein/Creatinine Ratio 2.42
[2023-10-07 16:26] VITALS: BP 121/80; PULSE 102; RESP 20; TEMP 98; O2SAT 97
== END 2023-10-07 18:23 | disposition hospice, home (50) | DRG 871 ==
LOC: EDBD 15:27 → EDUNIT# 15:27 → ER 15:27 → TELE-EAST 22:35 → TELE 22:35 → TELE-EAST 10-05 20:40
PROVIDERS: ADMIT Nurse Practitioner Family; ATTEND Family Medicine
PROC: 30233N1 Transfusion of Nonautologous Red Blood Cells into Peripheral Vein, Percutaneous Approach (ICD-10-PCS; principal; 2023-10-04)
DX: A41.51 Sepsis due to Escherichia coli [E. coli] (principal); J96.01 Acute respiratory failure with hypoxia; N39.0 Urinary tract infection, site not specified; K56.49 Other impaction of intestine; K92.2 Gastrointestinal hemorrhage, unspecified; N17.9 Acute kidney failure, unspecified; E87.0 Hyperosmolality and hypernatremia; E87.20 Acidosis, unspecified; Z68.41 Body mass index [BMI] 40.0-44.9, adult; J44.1 Chronic obstructive pulmonary disease with (acute) exacerbation; J44.0 Chronic obstructive pulmonary disease with (acute) lower respiratory infection; I13.0 Hypertensive heart and chronic kidney disease with heart failure and stage 1 through stage 4 chronic kidney disease, or unspecified chronic kidney disease; K56.41 Fecal impaction; K80.20 Calculus of gallbladder without cholecystitis without obstruction; N13.9 Obstructive and reflux uropathy, unspecified; N18.9 Chronic kidney disease, unspecified; I50.9 Heart failure, unspecified; Z66 Do not resuscitate; E03.9 Hypothyroidism, unspecified; E78.5 Hyperlipidemia, unspecified; E66.01 Morbid (severe) obesity due to excess calories; G40.909 Epilepsy, unspecified, not intractable, without status epilepticus; E87.6 Hypokalemia; Z88.8 Allergy status to other drugs, medicaments and biological substances; Z79.899 Other long term (current) drug therapy; Z79.82 Long term (current) use of aspirin; Z86.73 Personal history of transient ischemic attack (TIA), and cerebral infarction without residual deficits; Z80.0 Family history of malignant neoplasm of digestive organs; Z81.8 Family history of other mental and behavioral disorders; Z86.19 Personal history of other infectious and parasitic diseases; Z51.5 Encounter for palliative care
CPT/HCPCS: 36415; 71045; 74176; 76775; 80048; 80053; 80202; 81001; 82140; 82306; 82570; 82962; 83605; 83735; 83880; 83970; 84100; 84156; 84300; 85025; 85610; 85730; 86850; 86900; 86901; 86920; 87040; 87077; 87081; 87086; 87088; 87186; 93005; 96361; 96365; 96368; 99291; G0378; J3480; J3490; J7060